=== PATIENT | male | born 1955 | race Caucasian/White ===

== ENCOUNTER 2020-01-30 06:11 | Emergency (ER) | payer OTHER, SELFPAY ==
[2020-01-30 06:18] VITALS: BP 146/84; PULSE 110; RESP 16; TEMP 36.4; O2SAT 95; BMI 31.5
[2020-01-30 06:38] VITALS: BP 139/87; PULSE 108; RESP 13; O2SAT 95
--- NOTE | 2020-01-30 07:13 | ECG_ITS ---
[facility] Test Date: 2020-01-30 Pat Name: Greg Ingram Department: Room: Gender: Male Project Manager/Team Coach: : 1955 Requested By: Shree Cota Order Number: [id number] Stephan MD: Teo Waller M.D. Measurements Intervals [place] Rate: 102 P: 58 VT: 120 QRS: 32 QRSD: 92 T: 80 QT: 360 QTc: 469 Interpretive Statements SINUS TACHYCARDIA NONSPECIFIC T-WAVE ABNORMALITY ABNORMAL RHYTHM ECG No previous ECG available for comparison Electronically Signed On 01-30-2020 10:11:50 MEDICATION NURSE by Teo Waller M.D. [id number]
--- NOTE | 2020-01-30 07:13 | W.ED.GENADLT ---
HPI - General Adult General: Chief complaint: General Medical Stated complaint: Numbness in Right Side of Face Time Seen by Provider: 01/30/20 06:16 History of Present Illness: HPI narrative: Patient says had a 2-day history of right facial drooping. Occurred suddenly. Said he is not had any neuro deficits besides on his face. Denies any pain. Is a diabetic who had been off his medications for a few months and just recently got back [place] 2 weeks ago. Denies any other health problems. MD complaint: Right facial drooping Onset (ago): day(s) (2) Location: face Radiation: non-radiation Severity: mild Associated symptoms: Reports no associated symptoms; Deny chest pain, dyspnea, headache(s), nausea, rash or vomiting Treatments prior to arrival: none Review of Systems Const: Denies: fever(s), chills or body aches Eyes: Denies: change in vision or blurry vision ENMT: Denies: throat pain or nasal congestion Card: Denies: chest pain or dyspnea on exertion Resp: Denies: dyspnea, productive cough or non-productive cough GI: Denies: abdominal pain, nausea or vomiting : Denies: difficulty urinating Musc: Denies: extremity pain Skin/Breast: Denies: rash Neuro: Reports: Slurred speech present and other (Right side facial drooping x2 days); Denies: headache(s) Psych: Denies: anxiety or depression Jamaal/Lymph: Denies: easy bruising Physical Exam Const: COMMON NORMALS: no acute distress, average body habitus and patient oriented x3 HENMT: COMMON NORMALS: normocephalic HEAD & SCALP: normal to inspection and normocephalic FACE & SINUS: normal facial exam Eye: COMMON NORMALS: conjunctivae normal GENERAL EYE: appearance normal, both eyes and all related structures CONJUNCTIVA: Yes conjunctivae normal Neck/C-Spine: COMMON NORMALS: no JVD Chest: COMMONS NORMALS: normal inspection of the chest Resp: COMMON NORMALS: normal respiratory effort and clear to auscultation bilaterally AUSCULTATION: clear to auscultation bilaterally Cardio: COMMON NORMALS: no JVD and regular rhythm RATE: tachycardic RHYTHM: regular rhythm GI: COMMON NORMALS: Normal to inspection, nondistended, normoactive bowel sounds present Extremity: COMMON NORMALS: normal to inspection and full ROM Neuro: COMMON NORMALS: patient oriented x3, moves all extremities, no focal motor deficits, no sensory deficits noted, deep tendon reflexes 2+ bilaterally and gait normal CRANIAL NERVES: Yes CN normal except as noted, Yes CN (abducens) and Yes CN VII (facial) Laterality: right CN VII findings: facial droop and weak closing of eye(s) Course Vital Signs: Vital signs: Vital Signs Temperature 97.5 F L 01/30/20 06:18 Pulse Rate 108 H 01/30/20 06:38 Respiratory Rate 13 01/30/20 06:38 Blood Pressure 139/87 01/30/20 06:38 Pulse Oximetry 95 01/30/20 06:38 MDM - General Adult MDM Narrative: Medical decision making narrative: Dr. Perales asked me evaluate and take over care of this patient. Discharge Plan Discharge Patient Disposition: Home Clinical Impression: Petty's palsy Condition: Stable Prescriptions: New prednisone 20 mg tablet 60 mg PO DAILY 7 Days Qty: 21 RF: 0 Artificial Tears (cmc) 1 % drops 1 drp ophthalmic (eye) 5XD Qty: 15 RF: 0 Artificial Tears (sully/min) 83-15 % ointment 1 applic ophthalmic (eye) ONCE Qty: 3.5 RF: 0 Discharge Orders: Discharge Order (Routine); Ordered 01/30/20 Ordered By: Shree Cota Referrals: Chan Huerta, DO [Primary Care Provider] - Discharge Diet: Usual diet Discharge Activity: Resume usual activity Patient Instructions: Petty Palsy (ED) Activity Restrictions/Additional Instructions: Follow-up with medical provider as directed. Take medications as prescribed. Return to the ER or your medical provider if condition worsens. Please read and understand discharge instructions. If any questions ask please. [facility] 2 [facility]. If worsening of symptoms or strokelike symptoms appear please return to the ER or follow[facility] with the [facility]. Tape eye shut at nighttime on the right side. Monitor sugar closely daily. Coding Level of Care Code ED Mold Inspector for Kyler Fwd Exam Comprehensive
[2020-01-30 07:43] VITALS: BP 140/89; PULSE 101; RESP 18; O2SAT 92
== END 2020-01-30 07:43 | disposition home or self-care (01) ==
PROVIDERS: Emergency Provider Nurse Practitioner Family; PCP Emergency Medicine Emergency Medical Services
DX: G51.0 Bell's palsy (principal); E11.9 Type 2 diabetes mellitus without complications
CPT/HCPCS: 12345; 93005; 99281; 99282

== ENCOUNTER 2021-03-24 14:27 | Outpatient (RCR) | payer OTHER, SELFPAY | END 2021-04-20 23:59 | disposition home or self-care (01) | LOC: SPT 14:27 | PROVIDERS: PCP Emergency Medicine Emergency Medical Services; Referring Provider Orthopaedic Surgery; Visit Provider Orthopaedic Surgery | DX: M75.01 Adhesive capsulitis of right shoulder (principal) | CPT/HCPCS: 97110; 97140; 97161 ==

== ENCOUNTER 2021-04-21 06:00 | Outpatient (RCR) | payer OTHER, SELFPAY | END 2021-05-18 23:59 | disposition home or self-care (01) | LOC: SPT 06:00 | PROVIDERS: PCP Emergency Medicine Emergency Medical Services; Referring Provider Orthopaedic Surgery; Visit Provider Orthopaedic Surgery | DX: M75.01 Adhesive capsulitis of right shoulder (principal) | CPT/HCPCS: 97110 ==

== ENCOUNTER 2021-05-19 06:00 | Outpatient (RCR) | payer OTHER, SELFPAY | END 2021-06-18 23:59 | disposition home or self-care (01) | LOC: SPT 06:00 | PROVIDERS: PCP Emergency Medicine Emergency Medical Services; Referring Provider Orthopaedic Surgery; Visit Provider Orthopaedic Surgery | DX: M75.01 Adhesive capsulitis of right shoulder (principal) | CPT/HCPCS: 97110 ==

== ENCOUNTER 2021-06-19 06:00 | Outpatient (RCR) | payer OTHER, SELFPAY | END 2021-07-18 23:59 | disposition home or self-care (01) | LOC: SPT 06:00 | PROVIDERS: PCP Emergency Medicine Emergency Medical Services; Referring Provider Orthopaedic Surgery; Visit Provider Orthopaedic Surgery | DX: M75.01 Adhesive capsulitis of right shoulder (principal) | CPT/HCPCS: 97110 ==

== ENCOUNTER 2021-07-19 | Outpatient (RCR) | payer OTHER, SELFPAY | END 2021-07-29 23:59 | disposition home or self-care (01) | LOC: SPT | PROVIDERS: PCP Emergency Medicine Emergency Medical Services; Referring Provider Orthopaedic Surgery; Visit Provider Orthopaedic Surgery | DX: M75.01 Adhesive capsulitis of right shoulder (principal) | CPT/HCPCS: 97110 ==

== ENCOUNTER → 2022-12-27 10:30 | Outpatient (BNVA) | payer OTHER, SELFPAY | PROVIDERS: PCP Emergency Medicine Emergency Medical Services; Visit Provider Podiatrist Foot & Ankle Surgery | DX: B35.1 Tinea unguium (principal); I73.9 Peripheral vascular disease, unspecified; G62.9 Polyneuropathy, unspecified; M21.6X1 Other acquired deformities of right foot; M21.6X2 Other acquired deformities of left foot; E11.42 Type 2 diabetes mellitus with diabetic polyneuropathy; Z79.84 Long term (current) use of oral hypoglycemic drugs | CPT/HCPCS: 11721; 99203 ==

== ENCOUNTER 2023-06-10 13:29 | Outpatient (CLI) | payer OTHER, SELFPAY ==
--- NOTE | 2023-06-10 13:40 | MR_ITS ---
WS: [id number] MRI HEAD WITH CONTRAST TECHNIQUE: Sagittal T1, T2 axial, T2 axial FLAIR, axial susceptibility weighted imaging, axial diffus ion weighted images, and coronal T2 images were obtained. Pre and post-T1 axial and post T1 coronal i mages. ADC and FSPGR images. CLINICAL INFORMATION: UPPER EXTREMITY TREMORS COMPARISON: None. FINDINGS: No evidence of restricted diffusion to suggest acute ischemia. Ventricular system and basal cisterns are patent. Mild small vessel changes. Mild parenchymal volume loss. Normal posterior fossa. Normal v ascular flow voids at the skull base. No extra-axial fluid collections. No evidence of mass or mass e ffect. The paranasal sinuses are well aerated. Mastoid air cells are well aerated. Tiny punctate focus of hemosiderin in the RIGHT basal ganglia and RIGHT cerebellum. Normal optic chiasm and pituitary infundibulum. Temporal lobes and hippocampal formations are normal in appearance. No abnormal gadolinium enhancement. Normal dural venous sinuses. IMPRESSION: 1. No evidence of restricted diffusion to suggest acute ischemia. 2. Mild small vessel changes with mild parenchymal volume loss. 3. Tiny foci of hemosiderin in the RIGHT basal ganglia and RIGHT cerebellum. 4. No abnormal gadolinium enhancement. 5. No other suspicious findings.
[2023-06-10] MEDS: gadobenate dimeglumine 20 mL vial IV (14:17)
== END 2023-06-10 13:30 | disposition home or self-care (01) ==
LOC: RAD 13:30
PROVIDERS: PCP Emergency Medicine Emergency Medical Services; Visit Provider Emergency Medicine Emergency Medical Services
DX: R25.1 Tremor, unspecified (principal)
CPT/HCPCS: 70553; A9577

== ENCOUNTER → 2023-08-17 10:15 | Outpatient (BNVA) | payer OTHER, SELFPAY | PROVIDERS: PCP Emergency Medicine Emergency Medical Services; Visit Provider Specialist | DX: R29.90 Unspecified symptoms and signs involving the nervous system (principal); G25.0 Essential tremor | CPT/HCPCS: 99204 ==

== ENCOUNTER → 2023-12-20 09:45 | Outpatient (BNVA) | payer OTHER, SELFPAY | PROVIDERS: PCP Emergency Medicine Emergency Medical Services; Visit Provider Specialist | DX: R29.90 Unspecified symptoms and signs involving the nervous system (principal); G25.0 Essential tremor | CPT/HCPCS: 99213 ==

== ENCOUNTER 2024-10-06 10:22 | Emergency (ER) | payer OTHER, MEDICARE, MEDICAID, SELFPAY ==
--- OUTSIDE RECORDS SUMMARY | 2024-10-02 03:19 | XMS_ITS ---
Author Name [facility] Organization [facility] [place] Address [address] [place] [address] Care Team Providers Care Fusing Machine Feeder Name Role Phone NATHANAEL ZENG Primary Care Provider Unavailabl e Insurance Providers: All historical and current Section Date Range: From patient's date of to the date document was created. This section includes the names of all active insurance providers for the patient. Insurance Provider Type of Coverage Plan Name Start of Policy Coverage End of Policy Coverage Group Number Member ID Insurance Provider's Telephone Number Policy Molina's Name Patient's Relationship to Policy Molina MEDICARE (WNR) MEDICARE (M) PART A Mar 21, 2020 PART A [id number] [phone] Ana Laura VAZQUEZ PATIENT MEDICARE (WNR) MEDICARE (M) PART B Mar 21, 2020 PART B [id number] Ana Laura VAZQUEZ PATIENT Selected Encounter This section includes the information on record at [place] for the Encounter. Date/Time Encounter Type Encounter Description Reason Pro vider Source Oct 02, 2024 08:19 AM Outpatient Encounter ADMIN PAT ACTIVTIES (MASNONCT) IHE Encounter Template Text not used by [place] Plan of Treatment: Future Appointments (+ 6 months) and Future Tests (+/- 45 days) The Plan of Treatment section includes future care activities for the patient from all [facility] treatmentfacilities. This section includes future appointments and future orders which are active, pending or scheduled. Future Appointments This section includes appointments that were scheduled to occur 6 months from the date of the Encounter, up to a maximum of 20 appointments. The data comes from all [facility]. Appointment Date/Time Appointment Type Appointme nt Facility Name Oct 04, 2024 09:45 AM AMBULATORY - [place]IC[place] [facility] Oct 11, 2024 01:30 PM AMBULATORY - MEDICINE [facility] Nov 09, 2024 01:30 PM AMBULATORY - MEDICINE [facility] Active, Pending, and Scheduled Orders This section includes a listing of several types of active, pending, and scheduled orders, including clinic medications orders, diagnostic test orders, procedure orders and consult orders; where the start date of the order is 45 days before the date of the Encounter or 45 days after the date of theEncounter. The data comes from all [facility]. Test Date/Time Test Type Test Details Facility Name Oct 02, 2024 03:26 PM Consult Order PROSTHETIC S REQUEST - OUTPT [id number] [facility] [employer] Field Technician's Choice [facility] Oct 02, 2024 03:26 PM Consult Order PB-CHIROPR ACTIC [place] OUTPT [id number] [employer] Field Technician's [facility] Lab Results: +/- 30 days of the encounter This section includes the Chemistry and Hematology Lab Results on record with [place] for the patient. Radiology Reports and Pathology Reports are provided separately, in subsequent sections. Lab Results This section contains the Chemistry/Hematology Results that were resulted 30 days before or 30 daysafter the date of the Encounter. Date/Time Source Result Type Result - Unit Interpretation Reference Range Specimen Type Comment Oct 02, 2024 03:16 PM [facility] PROST. SPECIFIC AG.(PB-STL) SERUM Specimen Ty pe: SERUM No comment entered. Ordering Provider: STEPHANY HUNTER Report Released Date/Time: Oct 02, 2024 03:06 PM Reporting Lab: [place] [facility] [address] [place] [address] Performing Lab: [place] [facility] [address] [place] [address] PROST. SPECIFIC AG.(PB-STL) 6.64 ng/mL H 0 -4 Oct 02, 2024 03:16 PM [facility] TSH (MA-PB) SERUM Specimen Typ e: SERUM No comment entered. Ordering Provider: STEPHANY HUNTER Report Released Date/Time: Oct 02, 2024 03:06 PM Reporting Lab: [place] [facility] [address] [place] [address] Performing Lab: [place] [facility] [address] [place] [address] TSH 1.475 u[IU]/mL 0.47-5 Oct 02, 2024 03:16 PM [facility] CBC BLOOD Specimen Type: BLOOD No comment entered. Ordering Provider: STEPHANY HUNTER Report Released Date/Time: Oct 02, 2024 03:06 PM Reporting Lab: [place] [facility] [address] [place] [facility] Performing Lab: [place] [facility] [address] [place] [address] WBC 5.1 10*3/uL 3.6-11.2 RBC 6.04 10*6/uL H 4.10-5.70 HGB 17.1 g/dL H 13.1-16.8 HCT 51.2 H 38.2-48.4 MCV 84.8 fL 80.0-100.0 MCH 28.3 pg 27.0-34.0 MCHC 33.4 g/dL 33.0-36.0 PLT 151 10*3/uL 150-400 MPV 11.1 fL 7.5-11.2 RDW 14.9 11.8-15.1 LYMPHOCYTES, AUTO % 35.1 MONOCYTES, AUTO % 10.0 NEUTROPHILS, AUTO % 51.7 EOSINOPHILS, AUTO % 1.8 BASOPHILS, AUTO % 0.8 LYMPHOCYTES, ABSOLUTE 1.79 10*3/uL 0.77- 4.50 MONOCYTES, ABSOLUTE 0.51 10*3/uL 0.19-0. 8 NEUTROPHILS, ABSOLUTE 2.64 10*3/uL 2.10- 8.00 EOSINOPHILS, ABSOLUTE 0.09 10*3/uL 0.00- 0.60 BASOPHILS, ABSOLUTE 0.04 10*3/uL 0.00-0. 20 IMMATURE GRANS, AUTO % 0.6 IMMATURE GRANS, AUTO ABS 0.03 10*3/uL 0. 00-0.05 Oct 02, 2024 03:16 PM [facility] B12 SERUM Specimen Type: SERUM No comment entered. Ordering Provider: STEPHANY HUNTER Report Released Date/Time: Oct 02, 2024 03:06 PM Reporting Lab: [place] [facility] [address] [place] [address] Performing Lab: [place] [facility] [address] [place] [address] B12 790 pg/mL 213-816 Oct 02, 2024 03:16 PM [facility] FOLATE (PB) SERUM Specimen Typ e: SERUM No comment entered. Ordering Provider: STEPHANY HUNTER Report Released Date/Time: Oct 02, 2024 03:06 PM Reporting Lab: [place] [facility] [address] [place] [address] Performing Lab: [place] [facility] [address] [place] [address] FOLATE (PB) 8.3 ng/mL 7-20 Oct 02, 2024 03:16 PM [facility] HGA1C BLOOD Specimen Type: BLOOD No comment entered. Ordering Provider: STEPHANY HUNTER Report Released Date/Time: Oct 02, 2024 03:06 PM Reporting Lab: [place] [facility] [address] [place] [address] Performing Lab: [place] [facility] [address] [place] [address] HGA1C 11.5 H 4.0-6.0 Oct 02, 2024 03:16 PM [facility] URINE ALBUMIN PROFILE-ih (PB) URINE Specimen Type: URINE No comment entered. Ordering Provider: STEPHANY HUNTER Report Released Date/Time: Oct 02, 2024 03:06 PM Reporting Lab: [place] [facility] [address] [place] [address] Performing Lab: [place] [facility] [address] [place] [address] URINE ALBUMIN (PB-STL) 24.47 mg/L uACR (PB-MA) 28.93 mg/g 0-30 CREATININE URINE/OTHERS 84.58 mg/dL Oct 02, 2024 03:16 PM [facility] VITAMIN D, 25-HYDROXY SERUM Specimen Type: SE RUM No comment entered. Ordering Provider: STEPHANY HUNTER Report Released Date/Time: Oct 02, 2024 03:06 PM Reporting Lab: [place] [facility] [address] [place] [address] Performing Lab: [place] [facility] [address] [place] [address] VITAMIN D, 25-HYDROXY 31.6 ng/mL 30-96 Oct 02, 2024 03:16 PM [facility] CHOLESTEROL PANEL (PB) PLASMA Specimen Type: P LASMA Comment: LDL calculation invalid when Triglyceride exceeds 250 mg/dl Ordering Provider: STEPHANY HUNTER Report Released Date/Time: Oct 02, 2024 03:06 PM Reporting Lab: [place] [facility] [address] [place] [address] Performing Lab: [place] [facility] [address] [place] [address] CHOLESTEROL 186 mg/dL 0-200 TRIGLYCERIDE 503 mg/dL H 0-150 CALCULATED LDL comment mg/dL HDL(New) 33.1 mg/dL L >40 HDL % OF TOTAL CHOLESTEROL (PB) 17.8 >25 DIRECT LDL(MA) 95.8 mg/dL 0-99.9 Oct 02, 2024 03:16 PM [facility] COMPREHENSIVE METABOLIC PANEL PLASMA Specimen Type: PLASMA Comment: LDL calculation invalid when Triglyceride exceeds 250 mg/dl Ordering Provider: STEPHANY HUNTER Report Released Date/Time: Oct 02, 2024 03:06 PM Reporting Lab: [place] [facility] [address] [place] [address] Performing Lab: [place] [facility] [address] [place] [address] CREATININE 0.75 mg/dL 0.7-1.3 UREA NITROGEN 19 mg/dL 9-25 GLUCOSE 156 mg/dL H 72-99 SODIUM 140 meq/L 136-145 POTASSIUM 4.3 meq/L 3.5-5 CHLORIDE 106 meq/L 98-107 CARBON DIOXIDE 24 meq/L 22-31 CALCIUM 8.7 mg/dL 8.4-10.4 PROTEIN 7.1 g/dL 6-8.6 ALBUMIN 4.5 g/dL 3.4-5 TOTAL BILIRUBIN 0.8 mg/dL 0.2-1.2 ALKALINE PHOSPHATASE 49 U/L 40-150 AST/SGOT 17 U/L 5-34 ALT/SGPT 22 U/L 8-40 EGFR (CKD-EPI 2020) 98 Radiology Reports: +/- 30 days of the encounter Radiology Reports For cases when an order for radiology services may have been completed prior to the date of the Encounter, the report list includes the Radiology Reports that were completed up to 30 days before dateof the Encounter. For cases when an order for radiology services may have been completed after the date of the Encounter, the report list also includes the Radiology Reports that were completed up to30 days after date of the Encounter. The data comes from all [place] treatment facilities. Date/Time Radiology Report Provider Source Oct 02, 2024 02:43 PM SHOULDER,RIGHT,2 O R MORE VIEWS: TALIA VAZQUEZ [id number] -1955 M Exm Date: OCT 02, 2024@14:43 Req Phys: STEPHANY HUNTER Pat Loc: PB-[place] [facility] (Req'g L Img Loc: PB-XRAY [place] Service: [place] [address] (Case [id number] COMPLETE) SHOULDER,RIGHT,2 OR MORE VIEWS (RAD Detailed) CPT:62274 Proc Modifiers : RIGHT Reason for Study: right shoulder pain Clinical History: Report Status: Verified Date Reported: OCT 02, 2024 Date Verified: OCT 02, 2024 Grove Superintendent E-Sig: Report: Right shoulder 2 views HISTORY: Right shoulder pain worsening DATE: 10/02/2024 FINDINGS: There are degenerative changes acromioclavicular and glenohumeral joints. Narrowing subacromion space. Calcification region of the supraspinatus tendon. Impression: 1. Mhkp-jw-gmijnzey arthritis 2. Calcification region of the supraspinous tendon most likely representing a calcific tendinitis Primary Interpreting Staff: CECILE BANKS, RADIOLOGIST (Grove Superintendent, no e-sig) /CECILE Mujica [facility] Oct 02, 2024 02:33 PM SPINE CERVICAL MIN 4 OR 5 VIEWS: TALIA VAZQUEZ [id number] -1955 M Exm Date: OCT 02, 2024@14:33 Req Phys: STEPHANY HUNTER Pat Loc: PB-[facility] PACT [facility] (Req'g L Img Loc: [facility] Service: Unknown [facility] [place] [address] (Case [id number] COMPLETE) SPINE CERVICAL MIN 4 OR 5 VIEWS (RAD Detailed) CPT:47378 Reason for Study: neck and left shoulder pain Clinical History: Report Status: Verified Date Reported: OCT 02, 2024 Date Verified: OCT 02, 2024 Grove Superintendent E-Sig: Report: Cervical spine 6 views HISTORY: Neck and left shoulder pain worsening DATE: 10/02/2024 FINDINGS: No evidence of a fracture or dislocation. There are degenerative changes. Disc spaces appear fairly well-maintained. Mild straightening normal lordotic curve. Calcification in the ligamentum nuchae. Impression: 1. Mild degenerative arthritis 2. Mild straightening normal lordotic curve suspicious for muscle and/or ligamentous injury Primary Interpreting Staff: CECILE BANKS RADIOLOGIST (Grove Superintendent, no e-sig) /CECILE Mujica [facility] [place] [facility] Oct 02, 2024 02:33 PM SPINE LUMBOSACRAL 2 OR 3 VIEWS: TALIA VAZQUEZ JOSTIN [id number] -1955 M Exm Date: OCT 02, 2024@14:33 Req Phys: STEPHANY HUNTER Loc: -[place] (Req'g L Img Loc: [facility] Service: Unknown [facility] [place] [address] (Case 193 COMPLETE) SPINE LUMBOSACRAL 2 OR 3 VIEWS (RAD Detailed) CPT:91018 Reason for Study: lower back pain Clinical History: Report Status: Verified Date Reported: OCT 02, 2024 Date Verified: OCT 02, 2024 Grove Superintendent E-Sig: Report: Lumbar spine 3 views. HISTORY: Low back pain worsening DATE: 10/02/2024 FINDINGS: There is no fracture or dislocation. No bony destruction. There are degenerative changes. Scoliosis. Small left renal calcification. Plaque in the abdominal aorta and iliac arteries. Impression: 1. Mild degenerative arthritis 2. Mild scoliosis 3. Small left renal calcification Primary Interpreting Staff: CECILE BANKS, RADIOLOGIST (Grove Superintendent, no e-sig) /CECILE Mujica [facility] Oct 02, 2024 02:33 PM SPINE THORACIC 2 V IEWS: TALIA VAZQUEZ [id number] -1955 M Exm Date: OCT 02, 2024@14:33 Req Phys: STEPHANY HUNTER Pat Loc: PB-[facility]CT [facility] (Req'g L Img Loc: PB-XRAY [place] Service: [place] [address] (Case [id number] COMPLETE) SPINE THORACIC 2 VIEWS (RAD Detailed) CPT:49828 Reason for Study: thoracic back pain with left shoulder pain Clinical History: Report Status: Verified Date Reported: OCT 02, 2024 Date Verified: OCT 02, 2024 Grove Superintendent E-Sig: Report: Thoracic spine 2 views HISTORY: Thoracic back pain with left shoulder pain worsening DATE: 10/02/2024 FINDINGS: There are degenerative changes. Mild narrowing a few the disc spaces. There is no fracture or dislocation. No definite bony destruction. Scoliosis. Impression: 1. Dydf-rd-evwkhdiv degenerative arthritis 2. Mild narrowing a few the disc spaces 3. Mild scoliosis Primary Interpreting Staff: CECILE BANKS, RADIOLOGIST (Grove Superintendent, no e-sig) /CECILE Mujica [facility] Encounter Notes: All associated encounter notes This section contains the clinical notes associated to the Encounter. Date/Time Encounter Note(s) Provider Source Oct 02, 2024 08:19 AM ADMINISTRATIVE NOT E: LOCAL TITLE: CCC: SCHEDULING ADMINISTRATION STANDARD TITLE: ADMINISTRATIVE NOTE DATE OF NOTE: OCT 02, 2024@08:19:40 ENTRY DATE: OCT 02, 2024@08:19:40 AUTHOR: CAMILLA GARCIA EXP COSIGNER: URGENCY: STATUS: COMPLETED CCC: SCHEDULING ADMINISTRATION Has ADDENDA Caller Verification Emergency Contact: JAMAICA KATYA Caller/Recipient Relation to Patient: Self Caller Name: TALIA VAZQUEZ Administrative Administrative Note Reason: Other Administrative Note Comments: Coyote called stating he's been having back pain and would like to make an appt to be seen for it. During warm transfer to triage nurse call was disconnected. Tried calling Coyote back and phone was busy. IMPORTANT: This note was created by [facility] Clinical Contact Center staff. Please do not alert the staff member by adding them as a signer for future communications. Alerts are not monitored by this user. /anne/ Talia STOLL [facility] Signed: 10/02/2024 08:19 Receipt Acknowledged By: 10/02/2024 11:50 /anne/ DARIEL Reddy [facility] 10/02/2024 ADDENDUM STATUS: COMPLETED Attempted to contact . Received a busy signal. /anne/ DARIEL Reddy [facility] Signed: 10/02/2024 11:50 10/02/2024 ADDENDUM STATUS: COMPLETED Coyote in clinic today for a Walkin visit /DARIEL Moscoso [facility] Signed: 10/02/2024 14:37 CAMILLA GARCIA [facility]
--- OUTSIDE RECORDS SUMMARY | 2024-10-02 09:00 | XMS_ITS | Encounter Summary ---
Author Name [facility] Organization [facility] [place] Address [address] [place] [id number] Care Team Providers Care Electrical Manager Name Role Phone NATHANAEL ZENG Primary Care [...] PART A Mar 21, 2020 PART A [id number] Ana Laura VAZQUEZ PATIENT MEDICARE (WNR) MEDICARE (M) PART B Mar 21, 2020 PART B [id number] Ana Laura VAZQUEZ PATIENT Selected Encounter This section includes the information on record at DC for the Encounter. Date/Time Encounter Type Encounter Description Reason Provider Source Oct 02, 2024 02:00 PM OFF/OP EST JULY X REQ PHY/QHP PRIMARY CARE/MEDICINE ICD-10-CM M54.50 Low back pain, unspecified DON CUEVAS IHCristiana Encounter Template Text not used by DC Assessments - Encounter Diagnoses This section includes the primary and secondary diagnoses documented for the Encounter. Date/Time Primary/Secondary Diagnosis Diagnosis Name Provider Source Oct 02, 2024 03:28 PM PRIMARY Low back pain, unspecified DON CUEVAS [facility] Plan of Treatment: Future Appointments (+ 6 months) and Future Tests (+/- 45 days) The Plan of Treatment section includes future care activities for the patient from [facility] This section includes future appointments and future orders which are active, pending or scheduled. Future Appointments This section includes appointments that were scheduled to occur 6 months from the date of the Encounter, up to a maximum of 20 appointments. The data comes from all [facility] facilities. Appointment Date/Time Appointment Type Appointme nt Facility Name Oct 04, 2024 09:45 AM AMBULATORY - [facility]IC[facility] [place] [facility] Oct 11, 2024 01:30 PM AMBULATORY - MEDICINE [facility] Nov 09, 2024 01:30 PM AMBULATORY MEDICINE [facility] Active, Pending, and Scheduled Orders This section includes a listing of several types of active, pending, and scheduled orders, including clinic medications orders, diagnostic test orders, procedure orders and consult orders; where the start date of the order is 45 days before the date of the Encounter or 45 days after the date of theEncounter. The data comes from all [facility]. Test Date/Time Test Type Test Details Facility Name Oct 02, 2024 03:26 PM Consult Order PROSTHETIC S REQUEST - OUTPT [id number] [employer] [facility] Oct 02, 2024 03:26 PM Consult Order PB-CHIROPR ACTIC [place] OUTPT [id number] Cons [employer] [facility] Lab Results: +/- 30 days of the encounter This section includes the Chemistry and Hematology Lab Results on record with DC for the patient. Radiology Reports and Pathology Reports are provided separately, in subsequent sections. Lab Results This section contains the Chemistry/Hematology Results that were resulted 30 days before or 30 daysafter the date of the Encounter. Date/Time Source Result Type Result - Unit Interpretation Reference Range Specimen Type Comment Oct 02, 2024 03:16 PM [facility] PROST. SPECIFIC AG.(PB-STL) SERUM Specimen Ty pe: SERUM No comment entered. Ordering Provider: STEPHANY HUNTER Report Released Date/Time: Oct 02, 2024 03:06 PM Reporting Lab: [place] [facility] [address] [place] [address] Performing Lab: [place] [facility] [address] [place] [facility] [address] PROST. SPECIFIC AG.(PB-STL) 6.64 ng/mL H 0 -4 Oct 02, 2024 03:16 PM [facility] CBC BLOOD Specimen Type: BLOOD No comment entered. Ordering Provider: STEPHANY HUNTER Report Released Date/Time: Oct 02, 2024 03:06 PM Reporting [facility] [address] [facility] [place] [id number] Performing Lab: [facility] [facility] [address] [facility] [place] [phone] WBC 5.1 10*3/uL 3.6-11.2 RBC 6.04 10*6/uL [...] 0. 00-0.05 Oct 02, 2024 03:16 PM [facility] TSH (MA-PB) SERUM Specimen Typ e: SERUM No comment entered. Ordering Provider: STEPHANY HUNTER Report Released Date/Time: Oct 02, 2024 03:06 PM Reporting Lab: [facility] [facility] [address] [place] [address] Performing Lab: [place] [facility] [address] [place] [address] TSH 1.475 u[IU]/mL 0.47-5 Oct 02, 2024 03:16 PM [place] [facility] B12 SERUM Specimen Type: SERUM No comment entered. Ordering Provider: STEPHANY HUNTER Report Released Date/Time: Oct 02, 2024 03:06 PM Reporting Lab: [place] [facility] [address] [place] [address] Performing Lab: [place] [facility] [address] [place] [address] B12 790 pg/mL 213-816 Oct 02, 2024 03:16 PM [facility] [place] [place] [facility] FOLATE (PB) SERUM Specimen Typ e: SERUM No comment entered. Ordering Provider: STEPHANY HUNTER Report Released Date/Time: Oct 02, 2024 03:06 PM Reporting Lab: [place] [facility] [address] [place] [address] Performing Lab: [place] [facility] [address] [place] [address] FOLATE (PB) 8.3 ng/mL 7-20 Oct 02, 2024 03:16 PM [facility] HGA1C BLOOD Specimen Type: BLOOD No comment entered. Ordering Provider: STEPHANY HUNTER Report Released Date/Time: Oct 02, 2024 03:06 PM Reporting Lab: [place] [facility] [address] [place] [address] Performing Lab: [place] [facility] [address] [place] [address] HGA1C 11.5 H 4.0-6.0 Oct 02, 2024 03:16 PM [place] [facility] VITAMIN D, 25-HYDROXY SERUM Specimen Type: SE RUM No comment entered. Ordering Provider: STEPHANY HUNTER Report Released Date/Time: Oct 02, 2024 03:06 PM Reporting Lab: [place] [facility] [address] [place] [address] Performing Lab: [place] [facility] [address] [place] [address] VITAMIN D, 25-HYDROXY 31.6 ng/mL 30-96 Oct 02, 2024 03:16 PM [facility] URINE ALBUMIN PROFILE-ih (PB) URINE Specimen Type: URINE No comment entered. Ordering Provider: STEPHANY HUNTER Report Released Date/Time: Oct 02, 2024 03:06 PM Reporting Lab: [place] [facility] [address] [place] [address] Performing Lab: [place] [facility] [address] [place] [address] URINE ALBUMIN (PB-STL) 24.47 mg/L uACR (PB-MA) 28.93 mg/g 0-30 CREATININE URINE/OTHERS 84.58 mg/dL Oct 02, 2024 03:16 PM [facility] COMPREHENSIVE METABOLIC PANEL PLASMA Specimen Type: PLASMA Comment: LDL calculation invalid when Triglyceride exceeds 250 mg/dl Ordering Provider: STEPHANY HUNTER Report Released Date/Time: Oct 02, 2024 03:06 PM Reporting Lab: [place] [facility] [address] [place] [address] Performing Lab: [place] [facility] [address] [place] [address] CREATININE 0.75 mg/dL 0.7-1.3 UREA NITROGEN 19 [...] 22 U/L 8-40 EGFR (CKD-EPI 2020) 98 Oct 02, 2024 03:16 PM [facility] CHOLESTEROL PANEL (PB) PLASMA Specimen Type: P NARCISO Comment: LDL calculation invalid when Triglyceride exceeds 250 mg/dl Ordering Provider: STEPHANY HUNTER Report Released Date/Time: Oct 02, 2024 03:06 PM Reporting Lab: [place] [facility] [address] [place] [address] Performing Lab: [place] [facility] [address] [place] [address] CHOLESTEROL 186 mg/dL 0-200 TRIGLYCERIDE 503 mg/dL H 0-150 CALCULATED LDL comment mg/dL HDL(New) 33.1 mg/dL L >40 HDL % OF TOTAL CHOLESTEROL (PB) 17.8 >25 DIRECT LDL(MA) 95.8 mg/dL 0-99.9 Vital Signs: All taken on the encounter date This section contains inpatient and outpatient Vital Signs collected on the date of the Encounter. Date/Time Temperature Pulse Blood Pressure Respiratory Rate SP02 Pain Height Weight Body Mass Index Source Oct 02, 2024 02:46 PM 148/90 mm[Hg] [facility] Oct 02, 2024 02:18 PM 98.5 F 98 /min 161/87 mm[Hg] 18 /min 95 % 10 204.5 lb 29 [facility] Social History: Smoking Status (Most current) and Tobacco Use (All prior to encounter date) This section includes the most current, and the historical, smoking and tobacco- related health factors from the [place] facility where the Encounter took place. Current Smoking Status This section includes the most current smoking, or tobacco-related health factor, from the [place] facility where the Encounter took place. Date/Time Current Smoking Status Comment Facil ity May 21, 2024 03:30 PM VA-TOBACCO USE EVERY DAY CIGARET ALISE [facility] Tobacco Use History This section includes a history of the smoking, or tobacco-related health factors, that were collected on or before the date of the Encounter. The data comes from the [place] facility where the Encounter took place. Date/Time Smoking Status/Tobacco Use Comment F acility May 21, 2024 03:30 PM VA-TOBACCO SCREEN FOLLOW-UP [facility] May 21, 2024 03:30 PM VA-TOBACCO USE ADVICE [facility] May 21, 2024 03:30 PM VA-TOBACCO USE BOOKS BINDER NO [facility] May 21, 2024 03:30 PM VA-TOBACCO USE EVERY DAY CIGARET ALISE [facility] May 21, 2024 03:30 PM VA-TOBACCO USE MED NO [place] [place] [facility] May 06, 2023 11:30 AM VA-TOBACCO USE 30 YEARS OR MORE [facility] May 06, 2023 11:30 AM VA-TOBACCO USE ADVICE [facility] May 06, 2023 11:30 AM VA-TOBACCO USE BOOKS BINDER NO [facility] May 06, 2023 11:30 AM VA-TOBACCO USE MED NO [place] [place] [facility] May 06, 2023 11:30 AM VA-TOBACCO USE WI 30 MIN OF WAKE UP [facility] May 06, 2023 11:30 AM VA-TOBACCO USER EVERY DAY [facility] Jan 13, 2022 10:00 AM VA-TOBACCO USE 30 YEARS OR MORE [facility] Jan 13, 2022 10:00 AM VA-TOBACCO USE ADVICE [facility] Jan 13, 2022 10:00 AM VA-TOBACCO USE BOOKS BINDER NO [facility] Jan 13, 2022 10:00 AM VA-TOBACCO USE MED NO [facility] Jan 13, 2022 10:00 AM VA-TOBACCO USE WI 30 MIN OF WAKE UP [facility] Jan 13, 2022 10:00 AM VA-TOBACCO USER EVERY DAY [facility] July 25, 2017 11:54 AM CURRENT TOBACCO USER [facility] July 25, 2017 11:54 AM CURRENT TOBACCO US ER (NOT READY TO QUIT) [facility] July 25, 2017 11:54 AM TOBACCO CESSATION REFERRAL DECLI ALEXX [facility] July 25, 2017 11:54 AM TOBACCO MEDS OFFERED BUT DECLINE D [facility] July 25, 2017 11:54 AM TOBACCO USER OFFERED MEDS [facility] Sep 07, 2016 12:12 PM CURRENT TOBACCO USER [facility] Sep 07, 2016 12:12 PM CURRENT TOBACCO US ER (NOT READY TO QUIT) [facility] Sep 07, 2016 12:12 PM TOBACCO CESSATION REFERRAL DECLI ALEXX [facility] Sep 07, 2016 12:12 PM TOBACCO CESSATION REFERRAL OFFER ED [facility] Sep 07, 2016 12:12 PM TOBACCO MEDS OFFERED BUT DECLINE D [facility] Sep 07, 2016 12:12 PM TOBACCO USER OFFERED MEDS [facility] Sep 08, 2015 08:04 AM CURRENT TOBACCO USER [facility] Sep 08, 2015 08:04 AM TOBACCO MEDS OFFERED BUT DECLINE D [facility] Sep 08, 2015 08:04 AM TOBACCO OFFERED PT MEDS (PROVIDE R) [facility] Sep 08, 2015 08:04 AM TOBACCO OFFERED STOP SMOKING CLI MARIA INES [facility] Radiology Reports: +/- 30 days of the [...] the Encounter. The data comes from all [place] treatment facilities. Date/Time Radiology Report Provider Source Oct 02, 2024 02:43 PM SHOULDER,RIGHT,2 O R MORE VIEWS: TALIA VAZQUEZ [id number] -1955 M Exm Date: OCT 02, 2024@14:43 Req Phys: STEPHANY HUNTER Pat Loc: [facility]-[place] PACT PANIAGUA KETAN (Req'g L Img Loc: PB-[place] [place] Service: [place] [address] (Case [id number] COMPLETE) SHOULDER,RIGHT,2 OR MORE VIEWS (RAD Detailed) CPT:08503 Proc Modifiers : RIGHT Reason for Study: right shoulder pain Clinical History: Report Status: Verified Date Reported: OCT 02, 2024 Date Verified: OCT 02, 2024 Sales Representative Facility Services E-Sig: Report: Right shoulder 2 views HISTORY: Right shoulder pain worsening DATE: 10/02/2024 FINDINGS: There are degenerative changes acromioclavicular and glenohumeral joints. Narrowing subacromion space. Calcification region of the supraspinatus tendon. Impression: 1. Ubsr-fv-icrkmqra arthritis 2. Calcification region of the supraspinous tendon most likely representing a calcific tendinitis Primary Interpreting Staff: CECILE BANKS, RADIOLOGIST (Sales Representative Facility Services, no e-sig) /CECILE Mujica [facility] Oct 02, 2024 02:33 PM SPINE CERVICAL MIN 4 OR 5 VIEWS: TALIA VAZQUEZ [id number] -1955 M Exm Date: OCT 02, 2024@14:33 Req Phys: STEPHANY HUNTER Pat Loc: [facility]-[place] PACT PANI[facility]UA [place] (Req'g L Img Loc: [facility] [place] Service: [place] [address] (Case [id number] COMPLETE) SPINE CERVICAL MIN 4 OR 5 VIEWS (RAD Detailed) CPT:36645 Reason for Study: neck and left shoulder pain Clinical History: Report Status: Verified Date Reported: OCT 02, 2024 Date Verified: OCT 02, 2024 Sales Representative Facility Services E-Sig: Report: Cervical spine 6 views HISTORY: Neck and left shoulder pain worsening DATE: 10/02/2024 FINDINGS: No evidence of a fracture or dislocation. There are degenerative changes. Disc spaces appear fairly well-maintained. Mild straightening normal lordotic curve. Calcification in the ligamentum nuchae. Impression: 1. Mild degenerative arthritis 2. Mild straightening normal lordotic curve suspicious for muscle and/or ligamentous injury Primary Interpreting Staff: CECILE BANKS, RADIOLOGIST (Sales Representative Facility Services, no e-sig) /[facility] CECILE BANKS [facility] Oct 02, 2024 02:33 PM SPINE LUMBOSACRAL 2 OR 3 VIEWS: TALIA VAZQUEZ [id number] -1955 M Exm Date: OCT 02, 2024@14:33 Req Phys: STEPHANY HUNTER Pat Loc: [facility]-[place] PACT PANIAGUA KETAN (Req'g L Img Loc: [facility] [place] Service: [place] [address] (Case [id number] COMPLETE) SPINE LUMBOSACRAL 2 OR 3 VIEWS (RAD Detailed) CPT:52355 Reason for Study: lower back pain Clinical History: Report Status: Verified Date Reported: OCT 02, 2024 Date Verified: OCT 02, 2024 Sales Representative Facility Services E-Sig: Report: Lumbar spine 3 views. HISTORY: Low back pain worsening DATE: 10/02/2024 FINDINGS: There is no fracture or dislocation. No bony destruction. There are degenerative changes. Scoliosis. Small left renal calcification. Plaque in the abdominal aorta and iliac arteries. Impression: 1. Mild degenerative arthritis 2. Mild scoliosis 3. Small left renal calcification Primary Interpreting Staff: CECILE BANKS, RADIOLOGIST (Sales Representative Facility Services, no e-sig) /CECILE Mujica [facility] Oct 02, 2024 02:33 PM SPINE THORACIC 2 V IEWS: TALIA VAZQUEZ [id number] -1955 M Exm Date: OCT 02, 2024@14:33 Req Phys: STEPHANY HUNTER Pat Loc: [facility]-[place] PACT PANIAGUA KETAN (Req'g L Img Loc: [facility] [place] Service: [place] [address] (Case [id number] COMPLETE) SPINE THORACIC 2 VIEWS (RAD Detailed) CPT:43146 Reason for Study: thoracic back pain with left shoulder pain Clinical History: Report Status: Verified Date Reported: OCT 02, 2024 Date Verified: OCT 02, 2024 Sales Representative Facility Services E-Sig: Report: Thoracic spine 2 views HISTORY: Thoracic back pain with left shoulder pain worsening DATE: 10/02/2024 FINDINGS: There are degenerative changes. Mild narrowing a few the disc spaces. There is no fracture or dislocation. No definite bony destruction. Scoliosis. Impression: 1. Tqdr-ob-oanzoomg degenerative arthritis 2. Mild narrowing a few the disc spaces 3. Mild scoliosis Primary Interpreting Staff: CECILE BANKS, RADIOLOGIST (Sales Representative Facility Services, no e-sig) /CECILE Mujica [facility] Encounter Notes: All associated encounter notes This section contains the clinical notes associated to the Encounter. Date/Time Encounter Note(s) Provider Source Oct 02, 2024 02:37 PM NURSING PROGRESS N OTE: LOCAL TITLE: NURSING NOTE PB STANDARD TITLE: NURSING PROGRESS NOTE DATE OF NOTE: OCT 02, 2024@14:37 ENTRY DATE: OCT 02, 2024@14:37:43 AUTHOR: DON CUEVAS COSIGNER: URGENCY: STATUS: COMPLETED This is a 69 year old MALE with known Allergies as noted: Patient has answered NKA On the following Active Medications: Active Outpatient Medications (including Supplies): Active Outpatient Medications Status 1) ALBUTEROL 90MCG (CFC-F) 200D ORAL INHL INHALE 2 PUFFS BY ACTIVE ORAL INHALATION FOUR TIMES A DAY SHAKE WELL. RINSE MOUTHPIECE FREQUENTLY TO PREVENT CLOGGING. Indication: FOR COPD 2) ALCOHOL PREP PAD USE/APPLY PAD TO AFFECTED AREA(S) ONCE A ACTIVE DAY NEEDED Indication: FOR WOUND CARE 3) ASPIRIN 81MG EC TAB TAKE ONE TABLET BY MOUTH ONCE A DAY FOR ACTIVE HEART OR CIRCULATION. TAKE WITH FOOD. 4) ATORVASTATIN CALCIUM 80MG TAB TAKE ONE-HALF TABLET BY MOUTH ACTIVE EVERY EVENING TO LOWER CHOLESTEROL 5) CHOLECALCIF 50MCG (D3-2,000UNIT) TAB TAKE ONE TABLET BY ACTIVE MOUTH ONCE A DAY Indication: FOR VITAMIN D DEFICIENCY 6) EMPAGLIFLOZIN 25MG TAB TAKE ONE TABLET BY MOUTH ONCE A DAY ACTIVE Indication: FOR DIABETES 7) FLUTICAS 100/SALMETEROL 50 INHL DISK 60 INHALE 1 INHALATION ACTIVE BY ORAL INHALATION TWICE A DAY (OPEN DISKUS; CLICK ONLY ONCE; MAY INHALE TWICE TO COMPLETE DOSE; CLOSE WHEN FINISHED) RINSE MOUTH AND SPIT AFTER EACH USE. Indication: FOR COPD 8) GLIPIZIDE 10MG TAB TAKE TWO TABLETS BY MOUTH TWO TIMES A DAY ACTIVE BEFORE MEALS FOR DIABETES. TAKE 30 MINUTES BEFORE EATING. 9) LANCET,SOFTCLIX USE LANCET FOR BLOOD TEST TWO TIMES PER WEEK ACTIVE (S) TO MONITOR BLOOD SUGAR. USE DIRECTED. 10) METFORMIN HCL 500MG 24HR SA TAB TAKE TWO TABLETS BY MOUTH ACTIVE TWICE A DAY WITH MEALS FOR BLOOD SUGAR CONTROL. TAKE WITH FOOD. AVOID ALCOHOL. DISCONTINUE BEFORE GETTING XRAY DYE. 11) PROPRANOLOL HCL 20MG TAB TAKE ONE TABLET BY MOUTH TWICE A ACTIVE DAY 12) TAMSULOSIN HCL 0.4MG CAP TAKE ONE CAPSULE BY MOUTH EVERY ACTIVE EVENING APPROXIMATELY 30 MINUTES AFTER THE SAME MEAL EACH DAY Indication: FOR BENIGN PROSTATIC HYPERPLASIA Active Non-VA Medications Status 1) Non-VA APPLE CIDER VINEGAR CAP/TAB 1 CAP/TAB BY MOUTH ONCE A ACTIVE DAY Indication: supplement 2) Non-VA FISH OIL 1000MG (500MG DHA/EPA) CAP 2000MG BY MOUTH ACTIVE THREE TIMES A DAY WITH MEALS Indication: FOR HIGH TRIGLYCERIDES 3) Non-VA MULTIVITAMIN/MINERAL ANTIOXIDANT CAP/TAB 1 CAP/TAB BY ACTIVE MOUTH ONCE A DAY Indication: FOR NUTRITION/DIETARY SUPPLEMENTATION 15 Total Medications C/C: back pain S: Lilibeth presents to the clinic as a walk-in. Wayzata reports over the last 3 months he has had low back pain mostly on the right side and radiates over to left side of his low back. report she also has left shoulder pain that is intermittent and is like a sharp stabbing pain that runs along his left shoulder blade. Wayz[place] report he takes 1200mg of ibuprofen daily for the pain, 600mg in the morning and 600mg in the evening. denies any known trauma to either area. Wayzata rates his pain at a 10/10. reports he has not taken his mediations today. O/A: ambulated to exam room with slow limping gait and no assistance. Wayzata alert and oriented x4 with unlabored breathing. has limited range of motion in his lumbar spine. is not currently having the stabbing pain in his left shoulder. Vital Signs: see cover sheet mild HTN 148/90 Weight: 204.5 pounds P: reviewed with Provider. Escalated to PCP visit. Immediate need called and form given to . Ketorolac 30mg IM ordered by Provider. Medication verified by Pharmacy and Nurse, pulled from clinic stock, scanned into BCMA and administered without complications into left Ventrogluteal site. Please see Provider note for complete plan of care. RTC: Advised to return to clinic as needed or report to ER if symptoms worsen. Per [facility] Directive 1605.06, wristband documentation: Patient wristband was removed and destroyed by (staff name) Don Cuevas and placed in the designated [email or web address] eG[employer]tered[employer]It bin. /es/ DARIEL ReddyN TALIA LOPEZ [facility] Signed: 10/02/2024 15:27 Receipt Acknowledged By: 10/02/2024 16:27 /es/ LA Gutierrez, MSN, Talia Lopez [facility]
--- OUTSIDE RECORDS SUMMARY | 2024-10-02 09:45 | XMS_ITS | Encounter Summary ---
Author Name [facility] [place] [facility] [place] [facility] [place] [facility] [place] Address [address] [place] [address] Care Team Providers Care Mimeographer Name Role Phone NATHANAEL ZENG Primary Care [...] PART A Mar 21, 2020 PART A [id number] [phone] Ana Laura INGRAM PATIENT MEDICARE (WNR) MEDICARE (M) PART B Mar 21, 2020 PART B [id number] Ana Laura INGRAM PATIENT Selected Encounter This section includes the information on record at [place] for the Encounter. Date/Time Encounter Type Encounter Description Reason Provider Source Oct 02, 2024 02:45 PM OFFICE O/P EST MOD 30 MIN PRIMARY CARE/MEDICINE ICD-10-CM M54.50 Low back pain, unspecified SANDRA HUNTER Cristiana Encounter Template Text not used by [facility] Assessments - Encounter Diagnoses This section includes the primary and secondary diagnoses documented for the Encounter. Date/Time Primary/Secondary Diagnosis Diagnosis Name Provider Source Oct 02, 2024 04:25 PM PRIMARY Low back pain, unspecified [facility] Oct 02, 2024 04:25 PM SECONDARY Cervicalgia SANDRA HUNTER [facility] Oct 02, 2024 04:25 PM SECONDARY Pain in thoracic spine SANDRA HUNTER [facility] Plan of Treatment: Future Appointments (+ 6 months) and Future Tests (+/- 45 days) The Plan of Treatment section includes future care activities for the patient from all [place] treatmentfacilities. This section includes future appointments and future orders which are active, pending or scheduled. Future Appointments This section includes appointments that were scheduled to occur 6 months from the date of the Encounter, up to a maximum of 20 appointments. The data comes from all [facility]. Appointment Date/Time Appointment Type Appointme nt Facility Name Oct 04, 2024 09:45 AM AMBULATORY - MEDICINE [facility] Oct 11, 2024 01:30 PM AMBULATORY - MEDICINE [facility] Nov 09, 2024 01:30 PM AMBULATORY - MEDICINE [facility] Active, Pending, and Scheduled Orders This section includes a listing of several types of active, pending, and scheduled orders, including clinic medications orders, diagnostic test orders, procedure orders and consult orders; where the start date of the order is 45 days before the date of the Encounter or 45 days after the date of theEncounter. The data comes from all [facility]. Test Date/Time Test Type Test Details Facility Name Oct 02, 2024 03:26 PM Consult Order PROSTHETIC S REQUEST - OUTPT [id number] Cons Feeder Switchboard Operator's Choice [facility] Oct 02, 2024 03:26 PM Consult Order PB-CHIROPR ACTIC [place] OUTPT [id number] Cons Feeder Switchboard Operator's [facility] Lab Results: +/- 30 days of the encounter This section includes the Chemistry and Hematology Lab Results on record with [place] for the patient. Radiology Reports and Pathology Reports are provided separately, in subsequent sections. Lab Results This section contains the Chemistry/Hematology Results that were resulted 30 days before or 30 daysafter the date of the Encounter. Date/Time Source Result Type Result - Unit Interpretation Reference Range Specimen Type Comment Oct 02, 2024 03:16 PM [facility] PROST. SPECIFIC AG.(PB-STL) SERUM Specimen Ty pe: SERUM No comment entered. Ordering Provider: SANDRA HUNTER Report Released Date/Time: Oct 02, 2024 03:06 PM Reporting Lab: [place] [facility] [address] [place] [id number] Performing Lab: [place] [facility] [address] [place] [address] PROST. SPECIFIC AG.(PB-STL) 6.64 ng/mL H 0 -4 Oct 02, 2024 03:16 PM [facility] TSH (MA-PB) SERUM Specimen Typ e: SERUM No comment entered. Ordering Provider: SANDRA HUNTER Report Released Date/Time: Oct 02, 2024 03:06 PM Reporting Lab: [place] [facility] [address] [place] [address] Performing Lab: [place] [facility] [address] [place] [id number] TSH 1.475 u[IU]/mL 0.47-5 Oct 02, 2024 03:16 PM [facility] CB CBC BLOOD Specimen Type: BLOOD No comment entered. Ordering Provider: SANDRA HUNTER Report Released Date/Time: Oct 02, 2024 03:06 PM Reporting Lab: [place] [facility] [address] [place] [id number] Performing Lab: [place] [facility] [address] [place] [address] WBC 5.1 10*3/uL 3.6-11.2 RBC 6.04 10*6/uL [...] 0. 00-0.05 Oct 02, 2024 03:16 PM [facility] B12 SERUM Specimen Type: SERUM No comment entered. Ordering Provider: SANDRA HUNTER Report Released Date/Time: Oct 02, 2024 03:06 PM Reporting Lab: [place] [facility] [address] [place] [address] Performing Lab: [place] [facility] [address] [place] [address] B12 790 pg/mL 213-816 Oct 02, 2024 03:16 PM [facility] FOLATE (PB) SERUM Specimen Typ e: SERUM No comment entered. Ordering Provider: SANDRA HUNTRE Report Released Date/Time: Oct 02, 2024 03:06 PM Reporting Lab: [place] [facility] [address] [place] [address] Performing Lab: [place] [facility] [address] [place] [address] FOLATE (PB) 8.3 ng/mL 7-20 Oct 02, 2024 03:16 PM [facility] HGA1C BLOOD Specimen Type: BLOOD No comment entered. Ordering Provider: SANDRA HUNTER Report Released Date/Time: Oct 02, 2024 03:06 PM Reporting Lab: [place] [facility] [address] [place] [address] Performing Lab: [place] [facility] [address] [place] [address] HGA1C 11.5 H 4.0-6.0 Oct 02, 2024 03:16 PM [facility] URINE ALBUMIN PROFILE-ih (PB) URINE Specimen Type: URINE No comment entered. Ordering Provider: SANDRA HUNTER Report Released Date/Time: Oct 02, 2024 03:06 PM Reporting Lab: [place] [facility] [address] [place] [address] Performing Lab: [place] [facility] [address] [place] [address] URINE ALBUMIN (PB-STL) 24.47 mg/L uACR (PB-MA) 28.93 mg/g 0-30 CREATININE URINE/OTHERS 84.58 mg/dL Oct 02, 2024 03:16 PM [facility] VITAMIN D, 25-HYDROXY SERUM Specimen Type: SE RUM No comment entered. Ordering Provider: SANDRA HUNTER Report Released Date/Time: Oct 02, 2024 03:06 PM Reporting Lab: [place] [facility] [address] [place] [address] Performing Lab: [place] [facility] [address] [place] [address] VITAMIN D, 25-HYDROXY 31.6 ng/mL 30-96 Oct 02, 2024 03:16 PM [facility] CHOLESTEROL PANEL (PB) PLASMA Specimen Type: P LASMA Comment: LDL calculation invalid when Triglyceride exceeds 250 mg/dl Ordering Provider: SANDRA HUNTER Report Released Date/Time: Oct 02, 2024 03:06 PM Reporting Lab: [place] [facility] [address] [place] [address] Performing Lab: [place] [facility] [address] [place] [address] CHOLESTEROL 186 mg/dL 0-200 TRIGLYCERIDE 503 mg/dL H 0-150 CALCULATED LDL comment mg/dL HDL(New) 33.1 mg/dL L >40 HDL % OF TOTAL CHOLESTEROL (PB) 17.8 >25 DIRECT LDL(MA) 95.8 mg/dL 0-99.9 Oct 02, 2024 03:16 PM [facility] COMPREHENSIVE METABOLIC PANEL PLASMA Specimen Type: PLASMA Comment: LDL calculation invalid when Triglyceride exceeds 250 mg/dl Ordering Provider: SANDRA HUNTER Report Released Date/Time: Oct 02, 2024 03:06 PM Reporting Lab: [place] [facility] [address] [place] [address] Performing Lab: [place] [facility] [address] [place] [address] CREATININE 0.75 mg/dL 0.7-1.3 UREA NITROGEN 19 [...] 22 U/L 8-40 EGFR (CKD-EPI 2020) 98 Vital Signs: All taken on the encounter date This section contains inpatient and outpatient Vital Signs collected on the date of the Encounter. Date/Time Temperature Pulse Blood Pressure Respiratory Rate SP02 Pain Height Weight Body Mass Index Source Oct 02, 2024 02:46 PM 148/90 mm[Hg] [facility] Oct 02, 2024 02:18 PM 98.5 F 98 /min 161/87 mm[Hg] 18 /min 95 % 10 204.5 lb 29 [facility] Social History: Smoking Status (Most current) and Tobacco Use (All prior to encounter date) This section includes the most current, and the historical, smoking and tobacco- related health factors from the [place] facility where the Encounter took place. Current Smoking Status This section includes the most current smoking, or tobacco-related health factor, from the [place] facility where the Encounter took place. Date/Time Current Smoking Status Comment Facil ity May 21, 2024 03:30 PM VA-TOBACCO NEVER USED OTHER TYPE [facility] Tobacco Use History This section includes a history of the smoking, or tobacco-related health factors, that were collected on or before the date of the Encounter. The data comes from the [place] facility where the Encounter took place. Date/Time Smoking Status/Tobacco Use Comment F acility May 21, 2024 03:30 PM VA-TOBACCO SCREEN FOLLOW-UP [facility] May 21, 2024 03:30 PM VA-TOBACCO USE ADVICE [facility] May 21, 2024 03:30 PM VA-TOBACCO USE CLOTH WASHER OPERATOR NO [facility] May 21, 2024 03:30 PM VA-TOBACCO USE EVERY DAY CIGARET ALISE [facility] May 21, 2024 03:30 PM VA-TOBACCO USE MED NO [facility] May 06, 2023 11:30 AM VA-TOBACCO USE 30 YEARS OR MORE [place] [facility] May 06, 2023 11:30 AM VA-TOBACCO USE ADVICE [facility] May 06, 2023 11:30 AM VA-TOBACCO USE CLOTH WASHER OPERATOR NO [facility] May 06, 2023 11:30 AM VA-TOBACCO USE MED NO [facility] May 06, 2023 11:30 AM VA-TOBACCO USE WI 30 MIN OF WAKE UP [facility] [place] [facility] May 06, 2023 11:30 AM VA-TOBACCO USER EVERY DAY [facility] Jan 13, 2022 10:00 AM VA-TOBACCO USE 30 YEARS OR MORE [facility] Jan 13, 2022 10:00 AM VA-TOBACCO USE ADVICE [facility] Jan 13, 2022 10:00 AM VA-TOBACCO USE CLOTH WASHER OPERATOR NO [facility] Jan 13, 2022 10:00 AM VA-TOBACCO USE MED NO [facility] Jan 13, 2022 10:00 AM VA-TOBACCO USE WI 30 MIN OF WAKE UP [facility] Jan 13, 2022 10:00 AM VA-TOBACCO USER EVERY DAY [facility] July 25, 2017 11:54 AM CURRENT TOBACCO USER [place] [facility] July 25, 2017 11:54 AM CURRENT TOBACCO US ER (NOT READY TO QUIT) [place] [facility] July 25, 2017 11:54 AM TOBACCO CESSATION REFERRAL DECLI ALEXX [place] [facility] July 25, 2017 11:54 AM TOBACCO MEDS OFFERED BUT DECLINE D [facility] July 25, 2017 11:54 AM TOBACCO USER OFFERED MEDS [facility] Sep 07, 2016 12:12 PM CURRENT TOBACCO USER [facility] Sep 07, 2016 12:12 PM CURRENT TOBACCO US ER (NOT READY TO QUIT) [place] [facility] Sep 07, 2016 12:12 PM TOBACCO CESSATION REFERRAL DECLI ALEXX [facility] Sep 07, 2016 12:12 PM TOBACCO CESSATION REFERRAL OFFER ED [facility] Sep 07, 2016 12:12 PM TOBACCO MEDS OFFERED BUT DECLINE D [facility] Sep 07, 2016 12:12 PM TOBACCO USER OFFERED MEDS [facility] Sep 08, 2015 08:04 AM CURRENT TOBACCO USER [facility] Sep 08, 2015 08:04 AM TOBACCO MEDS OFFERED BUT DECLINE D [facility] Sep 08, 2015 08:04 AM TOBACCO OFFERED PT MEDS (PROVIDE R) [facility] Sep 08, 2015 08:04 AM TOBACCO OFFERED STOP SMOKING CLI MARIA INES [facility] Radiology Reports: +/- 30 days of the [...] the Encounter. The data comes from all [place] treatment facilities. Date/Time Radiology Report Provider Source Oct 02, 2024 02:43 PM SHOULDER,RIGHT,2 O R MORE VIEWS: TALIA INGRAM JOSTIN [id number] -[id number] M Exm Date: OCT 02, 2024@14:43 Req Phys: SANDRA HUNTER Pat Loc: PB-[place]IL[place] PACT PANIAGUA KETAN (Req'g L Img Loc: PB-XRAY [place] Service: [place] [address] (Case [id number] COMPLETE) SHOULDER,RIGHT,2 OR MORE VIEWS (RAD Detailed) CPT:65267 Proc Modifiers : RIGHT Reason for Study: right shoulder pain Clinical History: Report Status: Verified Date Reported: OCT 02, 2024 Date Verified: OCT 02, 2024 Inverted Block Operator E-Sig: Report: Right shoulder 2 views HISTORY: Right shoulder pain worsening DATE: 10/02/2024 FINDINGS: There are degenerative changes acromioclavicular and glenohumeral joints. Narrowing subacromion space. Calcification region of the supraspinatus tendon. Impression: 1. Tzmv-wd-diodylnc arthritis 2. Calcification region of the supraspinous tendon most likely representing a calcific tendinitis Primary Interpreting Staff: CECILE B JOCELYN, RADIOLOGIST (Inverted Block Operator, no e-sig) /[facility] CECILE BANKS [facility] Oct 02, 2024 02:33 PM SPINE CERVICAL MIN 4 OR 5 VIEWS: GEORGETALIA JOSTIN [id number] -[id number] M Exm Date: OCT 02, 2024@14:33 Req Phys: SANDRA HUNTER Pat Loc: PB-CAMILLE PACT PANIAGUA KETAN (Req'g L Img Loc: PB-XRAY [place] Service: [place] [address] (Case [id number] COMPLETE) SPINE CERVICAL MIN 4 OR 5 VIEWS (RAD Detailed) CPT:54560 Reason for Study: neck and left shoulder pain Clinical History: Report Status: Verified Date Reported: OCT 02, 2024 Date Verified: OCT 02, 2024 Inverted Block Operator E-Sig: Report: Cervical spine 6 views HISTORY: [...] injury Primary Interpreting Staff: CECILE BANKS, RADIOLOGIST (Inverted Block Operator, no e-sig) /[facility] CECILE BANKS [facility] Oct 02, 2024 02:33 PM SPINE LUMBOSACRAL 2 OR 3 VIEWS: TALIA INGRAM [id number] -[id number] M Exm Date: OCT 02, 2024@14:33 Req Phys: SANDRA HUNTER Pat Loc: PB-CAMILLE PACT PANIAGUA KETAN (Req'g L Img Loc: PB-XRAY [place] Service: [place] [address] (Case [id number] COMPLETE) SPINE LUMBOSACRAL 2 OR 3 VIEWS (RAD Detailed) CPT:48867 Reason for Study: lower back pain Clinical History: Report Status: Verified Date Reported: OCT 02, 2024 Date Verified: OCT 02, 2024 Inverted Block Operator E-Sig: Report: Lumbar spine 3 views. HISTORY: Low back pain worsening DATE: 10/02/2024 FINDINGS: There is no fracture or dislocation. No bony destruction. There are degenerative changes. Scoliosis. Small left renal calcification. Plaque in the abdominal aorta and iliac arteries. Impression: 1. Mild degenerative arthritis 2. Mild scoliosis 3. Small left renal calcification Primary Interpreting Staff: CECILE BANKS RADIOLOGIST (Inverted Block Operator, no e-sig) /CECILE Mujica [place] [facility] Oct 02, 2024 02:33 PM SPINE THORACIC 2 V IEWS: TALIA INGRAM [id number] -1955 M Exm Date: OCT 02, 2024@14:33 Req Phys: SANDRA HUNTER Pat Loc: PB-CAMILLE PACT PANIAGUA KETAN (Req'g L Img Loc: PB-XRAY [place] Service: [place] [address] (Case [id number] COMPLETE) SPINE THORACIC 2 VIEWS (RAD Detailed) CPT:49197 Reason for Study: thoracic back pain with left shoulder pain Clinical History: Report Status: Verified Date Reported: OCT 02, 2024 Date Verified: OCT 02, 2024 Inverted Block Operator E-Sig: Report: Thoracic spine 2 views HISTORY: Thoracic back pain with left shoulder pain worsening DATE: 10/02/2024 FINDINGS: There are degenerative changes. Mild narrowing a few the disc spaces. There is no fracture or dislocation. No definite bony destruction. Scoliosis. Impression: 1. Jnok-my-awrbbljh degenerative arthritis 2. Mild narrowing a few the disc spaces 3. Mild scoliosis Primary Interpreting Staff: CECILE BANKS RADIOLOGIST (Inverted Block Operator, no e-sig) /CECILE Muj[place] [facility] Encounter Notes: All associated encounter notes This section contains the clinical notes associated to the Encounter. Date/Time Encounter Note(s) Provider Source Oct 03, 2024 11:11 AM PHYSICIAN LETTERS: LOCAL TITLE: TEST RESULT GENERAL LETTER STL STANDARD TITLE: PHYSICIAN LETTERS DATE OF NOTE: OCT 03, 2024@11:11 ENTRY DATE: OCT 03, 2024@11:11:51 AUTHOR: NATHANAEL ZENG III EXP COSIGNER: URGENCY: STATUS: COMPLETED [facility] [address] [place] [address] OCT 03, 2024 TALIA INGRAM [address] [place] [address] [place] [id number] Dear Talia Ingram, I would like to update you on your recent test results. OTHER TEST RESULTS RADIOLOGY (NON-INVASIVE TEST RESULTS): Nothing appears urgent or surgical at this time: Thoracic spine 2 views HISTORY: Thoracic back pain with left shoulder pain worsening DATE: 10/02/2024 FINDINGS: There are degenerative changes. Mild narrowing a few the disc spaces. There is no fracture or dislocation. No definite bony destruction. Scoliosis. Impression: 1. Zwke-tv-jygblwvm degenerative arthritis 2. Mild narrowing a few the disc spaces 3. Mild scoliosis FUTURE APPOINTMENTS: 10/04/2024 09:45 [facility] [id number] 10/11/2024 13:30 PB-CAMILLE PACT PANIAGUA PCP 11/09/2024 13:30 PB-[place] CHIRO 2 05/22/2025 10:30 PB-CAMILLE PACT PANIAGUA PCP Sincerely, MD TALIA OTERO III [facility] TALIA INGRAM HOMER E III [facility] Oct 03, 2024 09:30 AM LETTERS: LOCAL TITLE: NURSE COMMUNICATION LETTER [facility] PB STANDARD TITLE: LETTERS DATE OF NOTE: OCT 03, 2024@09:30 ENTRY DATE: OCT 03, 2024@09:31:12 AUTHOR: HENRY MUHAMMAD EXP COSIGNER: URGENCY: STATUS: [facility]TED [facility] [address] [place] [address] OCT 03, 2024 TALIA INGRAM [address] [place] [id number] Dear Talia Ingram, Good morning, We have attempted to contact you by phone from the [facility], to go over your recent x-ray result and provider recommendations. We have not had any success as we continually just get a busy signal. Please review the enclosed test result letter and if you have any questions, they can be discussed next week at you PCP appt on 10/11/24 @ [phone]. You can always contact via phone with any questions or concerns by calling [phone] option 0 and ask for your [place] team Nurse. As always, thank you for your service. Respectfully, Baldo Ochoa Team RN Thank you for your service! HENRY MUHAMMAD [facility] Oct 02, 2024 04:11 PM PHYSICIAN LETTERS: LOCAL TITLE: TEST RESULT GENERAL LETTER STL STANDARD TITLE: PHYSICIAN LETTERS DATE OF NOTE: OCT 02, 2024@16:11 ENTRY DATE: OCT 02, 2024@16:11:30 AUTHOR: NATHANAEL ZENG III EXP COSIGNER: URGENCY: STATUS: COMPLETED [facility] [address] [place] [address] OCT 02, 2024 TALIA INGRAM [address] [place] [address] Dear Talia Ingram, I would like to update you on your recent test results. OTHER TEST RESULTS RADIOLOGY (NON-INVASIVE TEST RESULTS): Cervical spine 6 views HISTORY: Neck and left shoulder pain worsening DATE: 10/02/2024 FINDINGS: No evidence of a fracture or dislocation. There are degenerative changes. Disc spaces appear fairly well-maintained. Mild straightening normal lordotic curve. Calcification in the ligamentum nuchae. Impression: 1. Mild degenerative arthritis 2. Mild straightening normal lordotic curve suspicious for muscle and/or ligamentous injury FUTURE APPOINTMENTS: 10/04/2024 09:45 [facility] [id number] 10/11/2024 13:30 PB-CAMILLE PACT PANIAGUA PCP 11/09/2024 13:30 PB-[place] CHIRO 2 05/22/2025 10:30 PB-CAMILLE PACT PANIAGUA PCP Sincerely, MD TALIA OTERO III [facility] TALIA INGRAM HOMER E III [facility] Oct 02, 2024 04:07 PM PHYSICIAN LETTERS: LOCAL TITLE: TEST RESULT GENERAL LETTER STL STANDARD TITLE: PHYSICIAN LETTERS DATE OF NOTE: OCT 02, 2024@16:07 ENTRY DATE: OCT 02, 2024@16:07:27 AUTHOR: NATHANAEL ZENG III EXP COSIGNER: URGENCY: STATUS: COMPLETED [facility] [address] [place] [address] OCT 02, 2024 TALIA INGRAM [address] [place] [address] Dear Talia Ingram, I would like to update you on your recent test results. OTHER TEST RESULTS RADIOLOGY (NON-INVASIVE TEST RESULTS): Right shoulder 2 views HISTORY: Right shoulder pain worsening DATE: 10/02/2024 FINDINGS: There are degenerative changes acromioclavicular and glenohumeral joints. Narrowing subacromion space. Calcification region of the supraspinatus tendon. Impression: 1. Disl-ml-xzkmdqeq arthritis 2. Calcification region of the supraspinous tendon most likely representing a calcific tendinitis PLAN Please continue your treatment as we discussed during your visit. If you have any questions please call your case consultant. I look forward to seeing you at your next clinic appointment. Thank you for choosing the [facility] for your healthcare. If today's visit did not calm it down within a week or so, you might want to go ahead and see orthopedics. Please call us back if you are interested in pursuing that route. FUTURE APPOINTMENTS: 10/04/2024 09:45 [facility] [id number] 10/11/2024 13:30 PB-CAMILLE PACT PANIAGUA PCP 11/09/2024 13:30 PB-[place] CHIRO 2 05/22/2025 10:30 PB-CAMILLE PACT PANIAGUA PCP Sincerely, MD TALIA OTERO III [facility] INGRAMTALIA HOMER E III [facility] Oct 02, 2024 03:17 PM PRIMARY CARE PROGR ESS NOTE: LOCAL TITLE: PRIMARY CARE CLINIC PROGRESS NOTE PB STANDARD TITLE: PRIMARY CARE PROGRESS NOTE DATE OF NOTE: OCT 02, 2024@15:17 ENTRY DATE: OCT 02, 2024@15:17:33 AUTHOR: SANDRA HUNTER EXP COSIGNER: URGENCY: STATUS: COMPLETED Date & Time:Sep@14:41 This is a 69 year old MALE Allergies: Patient has answered NKA CC: Right shoulder stabbing pain with pain in between shoulder blades and in lower back and sciatic nerve HPI: [place] presented to the clinic today as a walk-in unscheduled appointment with complaints of right stabbing shoulder pain with shoulder in between shoulder blades in the thoracic spine region as well as lower back states worse on the right side stating down into the sciatic nerve area. [place] also has some tenderness to the cervical spine area palpable muscle spasm spasms up and down the cervical the spine. Temperature: 98.5 F [36.9 C] (10/02/2024 14:18) Respiratory Rate: 18 (10/02/2024 14:18) Pulse Rate: 98 (10/02/2024 14:18) Blood Pressure: 161/87 (10/02/2024 14:18) HT: 70 in [177.8 cm] (09/08/2017 08:32) WT: 204.5 lb [92.76 kg] (10/02/2024 14:18) BMI: 29.4 95% (10/02/2024 14:18) REVIEW OF SYSTEMS: RESPIRATORY: No cough, SOA, wheezing, or sputum production. CARDIOVASCULAR: No chest pain, palpitations, tachycardia, PND, or orthopnea. GI: No abdominal pain, nausea, vomiting, diarrhea, constipation, melena, or hematochezia. : No dysuria, hematuria, urinary frequency, weak stream, or post-void dribbling. MUSCULOSKELETAL: Right shoulder pain cervical thoracic and lumbar spine pain. SKIN: No rash, lesions, or infection PSYCH: No depression and anxious at this time. Not suicidal. 1) History of polyp of colon 2) Benign prostatic hyperplasia 3) Sinus tachycardia 4) Diabetes mellitus 5) Hyperlipidemia 6) Elevated PSA 7) Tremor Active Outpatient Medications (including Supplies): Active Outpatient [...] Indication: FOR NUTRITION/DIETARY SUPPLEMENTATION 15 Total Medications OBJECTIVE: Physical Exam General: NAD noted, A&Ox3, pleasant, appears stated age HEENT: NCAT, TM's clear, nares and oropharynx clear Neck: Supple with normal active ROM, without any lymphadenopathy Heart: RRR, no murmur, clicks, or rub Resp: Lungs CTA bilaterally, respirations even and unlabored Abdomen: Soft, non-distended, non-tender Ext: No clubbing, cyanosis, edema or obvious deformity Neuro: Grossly intact Psych: Affect normal, answers questions appropriately throughout visit Assessment/Plan: Lower back pain -current plan x-ray lumbar spine today, prednisone called to [facility] pharmacy immediate need form given to . Will send diclofenac gel and lidocaine patches to in the mail. Chiropractor consult placed for lower back pain. Heat pack given to from [facility] stock Cervicalgia -current Plan x-ray of cervical spine today plan IM Toradol today prednisone called to [facility] [employer] immediate need form given will place chiro consult for neck pain lower back pain and thoracic back pain. [place] instructed to make appointment on the way out the door will mail diclofenac gel and lidocaine patches to . Thoracic spine pain -current Plan x-ray of thoracic spine today plan IM Toradol today prednisone called to [facility] pharmacy immediate need form given to will place chiropractor consult for neck pain lower back pain and thoracic back pain instructed to make appointment on the way out the door for chiropractor and an annual appointment will mail diclofenac gel and lidocaine patches to Reviewed x-ray reports with and discussed narrowing and degenerative changes as well or as arthritic changes at this time does not want any surgical interventions would like to try conservative interventions we will do the chiropractor and the medications and proceed as needed at this time we do not want to do an MRI. Follow-up: ___1__ months and/or as needed. Discussed with patient that in the event of community imaging / testing being ordered in the future, once the imaging / testing has been completed, please notify PACT of completion at outside facility if not called with results within 1 week by a [facility]; this is due to intermittent lapses in notification of imaging completion within [facility]. All questions answered; agrees to plan of care. Follow up as listed above, annually, and as needed. Keep all appointments. Medications Reconciled. See AVS given to . Time spent 30 minutes. Sandra SERRANO /anne/ LA Gutierrez, MSN, Talia Lopez [facility] Signed: 10/02/2024 16:25 SANDRA HUNTER [facility]
--- OUTSIDE RECORDS SUMMARY | 2024-10-04 08:45 | XMS_ITS | Encounter Summary ---
Author Name [facility] [place] [facility] [facility] [place] Address [address] [place] [id number] Care Team Providers Care Technical Support Specialist Name Role Phone NATHANAEL ZENG Primary Care [...] PART A Mar 21, 2020 PART A [id number] [phone] Ana Laura VAZQUEZ PATIENT MEDICARE (WNR) MEDICARE (M) PART B Mar 21, 2020 PART B [id number] Ana Laura VAZQUEZ PATIENT Selected Encounter This section includes the information on record at [place] for the Encounter. Date/Time Encounter Type Encounter Description Reason Pro vider Source Oct 04, 2024 01:45 PM Outpatient Encounter PRIMARY CARE/MEDICINE IHE Encounter Template Text not used by [place] Plan of Treatment: Future Appointments (+ 6 [...] 20 appointments. The data comes from all [place] treatment facilities. Appointment Date/Time Appointment Type Appointme nt Facility Name Oct 11, 2024 01:30 PM AMBULATORY - MEDICINE [facility] Nov 09, 2024 01:30 PM AMBULATORY - MEDICINE [facility] Active, Pending, and Scheduled Orders This section includes a listing of several types of active, pending, and scheduled orders, including clinic medications orders, diagnostic test orders, procedure orders and consult orders; where the start date of the order is 45 days before the date of the Encounter or 45 days after the date of theEncounter. The data comes from all [place] treatment [facility]. Test Date/Time Test Type Test Details Facility Name Oct 02, 2024 03:26 PM Consult Order PROSTHETIC S REQUEST - OUTPT [id number] Cons Lighter Captain's Choice [facility] Oct 02, 2024 03:26 PM Consult Order PB-CHIROPR ACTIC SHERIDAN OUTPT [id number] Cons Lighter [facility] Lab Results: +/- 30 days of the encounter This section includes the Chemistry and Hematology Lab Results on record with [place] for the patient. Radiology Reports and Pathology Reports are provided separately, in subsequent sections. Lab Results This section contains the Chemistry/Hematology Results that were resulted 30 days before or 30 daysafter the date of the Encounter. Date/Time Source Result Type Result - Unit Interpretation Reference Range Specimen Type Comment Oct 02, 2024 03:16 PM [facility] PROST. SPECIFIC AG.(PB-STL) SERUM Specimen Ty pe: SERUM No comment entered. Ordering Provider: STEPHANY HUNTER Report Released Date/Time: Oct 02, 2024 03:06 PM Reporting Lab: [place] [facility] [address] [place] [address] Performing Lab: [place] [facility] [address] [place] [address] PROST. SPECIFIC AG.(PB-STL) 6.64 ng/mL H 0 -4 Oct 02, 2024 03:16 PM [facility] TSH (MA-PB) SERUM Specimen Typ e: SERUM No comment entered. Ordering Provider: STEPHANY HUNTER Report Released Date/Time: Oct 02, 2024 03:06 PM Reporting Lab: [place] [facility] [address] [place] [address] Performing Lab: [place] [facility] [address] [place] [address] TSH 1.475 u[IU]/mL 0.47-5 Oct 02, 2024 03:16 PM [facility] CBC BLOOD Specimen Type: BLOOD No comment entered. Ordering Provider: STEPHANY HUNTER Report Released Date/Time: Oct 02, 2024 03:06 PM Reporting Lab: [place] [facility] [address] [place] [id number] Performing Lab: [place] [facility] [address] [employer] [facility] [place] [id number] WBC 5.1 10*3/uL 3.6-11.2 RBC 6.04 10*6/uL [...] 0. 00-0.05 Oct 02, 2024 03:16 PM [facility] B12 SERUM Specimen Type: SERUM No comment entered. Ordering Provider: STEPHANY HUNTER Report Released Date/Time: Oct 02, 2024 03:06 PM Reporting Lab: [place] [facility] [address] [place] [address] Performing Lab: [place] [facility] [address] [place] [address] B12 790 pg/mL 213-816 Oct 02, 2024 03:16 PM [facility] FOLATE (PB) SERUM Specimen Typ e: SERUM No comment entered. Ordering Provider: STEPHANY HUNTER Report Released Date/Time: Oct 02, 2024 03:06 PM Reporting Lab: [place] [facility] [address] [place] [address] Performing Lab: [place] [facility] [address] [place] [address] FOLATE (PB) 8.3 ng/mL 7-20 Oct 02, 2024 03:16 PM [facility] HGA1C BLOOD Specimen Type: BLOOD No comment entered. Ordering Provider: STEPHANY HUNTER Report Released Date/Time: Oct 02, 2024 03:06 PM Reporting Lab: [place] [facility] [address] [place] [address] Performing Lab: [place] [facility] [address] [place] [address] HGA1C 11.5 H 4.0-6.0 Oct 02, 2024 03:16 PM [facility] VITAMIN D, 25-HYDROXY SERUM Specimen Type: SE RUM No comment entered. Ordering Provider: STEPHANY HUNTER Report Released Date/Time: Oct 02, 2024 03:06 PM Reporting Lab: [place] [facility] [address] [place] [address] Performing Lab[place] [facility] [address] [place] [address] VITAMIN D, 25-HYDROXY 31.6 ng/mL 30-96 Oct 02, 2024 03:16 PM [facility] URINE ALBUMIN PROFILE-ih (PB) URINE Specimen Type: URINE No comment entered. Ordering Provider: STEPHANY HUNTER Report Released Date/Time: Oct 02, 2024 03:06 PM Reporting Lab: [place] [facility] [address] [place] [address] Performing Lab: [place] [facility] [address] [place] [address] URINE ALBUMIN (PB-STL) 24.47 mg/L uACR (PB-MA) 28.93 mg/g 0-30 CREATININE URINE/OTHERS 84.58 mg/dL Oct 02, 2024 03:16 PM [facility] CHOLESTEROL PANEL (PB) PLASMA Specimen Type: P LASMONICA Comment: LDL calculation invalid when Triglyceride exceeds 250 mg/dl Ordering Provider: STEPHANY HUNTER Report Released Date/Time: Oct 02, 2024 03:06 PM Reporting Lab: [place] [facility] [address] [place] [address] Performing Lab: [place] [facility] [address] [place] [address] CHOLESTEROL 186 mg/dL 0-200 TRIGLYCERIDE 503 mg/dL H 0-150 CALCULATED LDL comment mg/dL HDL(New) 33.1 mg/dL L >40 HDL % OF TOTAL CHOLESTEROL (PB) 17.8 >25 DIRECT LDL(MA) 95.8 mg/dL 0-99.9 Oct 02, 2024 03:16 PM [facility] COMPREHENSIVE METABOLIC PANEL PLASMA Specimen Type: PLASMA Comment: LDL calculation invalid when Triglyceride exceeds 250 mg/dl Ordering Provider: STEPHANY HUNTER Report Released Date/Time: Oct 02, 2024 03:06 PM Reporting Lab: [place] [facility] [address] [place] [address] Performing Lab: [place] [facility] [address] [place] [address] CREATININE 0.75 mg/dL 0.7-1.3 UREA NITROGEN 19 [...] 22 U/L 8-40 EGFR (CKD-EPI 2020) 98 Social History: Smoking Status (Most current) and Tobacco Use (All prior to encounter date) This section includes the most current, and the historical, smoking and tobacco- related health factors from the [place] facility where the Encounter took place. Current Smoking Status This section includes the most current smoking, or tobacco-related health factor, from the [place] facility where the Encounter took place. Date/Time Current Smoking Status Comment Facil ity May 21, 2024 03:30 PM VA-TOBACCO USE EVERY DAY CIGARET ALISE [facility] Tobacco Use History This section includes a history of the smoking, or tobacco-related health factors, that were collected on or before the date of the Encounter. The data comes from the [place] facility where the Encounter took place. 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 [facility] May 06, 2023 11:30 AM VA-TOBACCO USE MED NO [facility] May 06, 2023 11:30 AM VA-TOBACCO USE WI 30 MIN OF WAKE UP [facility] May 06, 2023 11:30 AM VA-TOBACCO USER EVERY DAY [facility] Jan 13, 2022 10:00 AM VA-TOBACCO USE 30 YEARS OR MORE [facility] Jan 13, 2022 10:00 AM VA-TOBACCO USE ADVICE [facility] Jan 13, 2022 10:00 AM VA-TOBACCO USE 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 [facility] Jan 13, 2022 10:00 AM VA-TOBACCO USE MED NO [facility] Jan 13, 2022 10:00 AM VA-TOBACCO USE WI 30 MIN OF WAKE UP [facility] Jan 13, 2022 10:00 AM VA-TOBACCO USER EVERY DAY [facility] July 25, 2017 11:54 AM CURRENT TOBACCO USER [facility] July 25, 2017 11:54 AM CURRENT TOBACCO US ER (NOT READY TO QUIT) [facility] July 25, 2017 11:54 AM TOBACCO CESSATION REFERRAL DECLI ALEXX [facility] July 25, 2017 11:54 AM TOBACCO MEDS OFFERED BUT DECLINE D [facility] July 25, 2017 11:54 AM TOBACCO USER OFFERED MEDS [facility] Sep 07, 2016 12:12 PM CURRENT TOBACCO USER [facility] Sep 07, 2016 12:12 PM CURRENT TOBACCO US ER (NOT READY TO QUIT) [facility] Sep 07, 2016 12:12 PM TOBACCO CESSATION REFERRAL DECLI A[facility]XX [facility] Sep 07, 2016 12:12 PM TOBACCO CESSATION REFERRAL OFFER ED [facility] Sep 07, 2016 12:12 PM TOBACCO MEDS OFFERED BUT DECLINE D [facility] Sep 07, 2016 12:12 PM TOBACCO USER OFFERED MEDS [facility] Sep 08, 2015 08:04 AM CURRENT TOBACCO USER [facility] Sep 08, 2015 08:04 AM TOBACCO MEDS OFFERED BUT DECLINE D [facility] Sep 08, 2015 08:04 AM TOBACCO OFFERED PT MEDS (PROVIDE R) [facility] Sep 08, 2015 08:04 AM TOBACCO OFFERED STOP SMOKING CLI MARIA INES [facility] Radiology Reports: +/- 30 days of the [...] the Encounter. The data comes from all [place] treatment facilities. Date/Time Radiology Report Provider Source Oct 02, 2024 02:43 PM SHOULDER,RIGHT,2 O R MORE VIEWS: TALIA VAZQUEZ [id number] -1955 M Exm Date: OCT 02, 2024@14:43 Req Phys: STEPHANY HUNTER Loc: [facility] (Req'g L Img Loc: PB-XRAY SHER[facility]AN Service: [place] [address] (Case [id number] COMPLETE) SHOULDER,RIGHT,2 OR MORE VIEWS (RAD Detailed) CPT:94313 Proc Modifiers : RIGHT Reason for Study: right shoulder pain Clinical History: Report Status: Verified Date Reported: OCT 02, 2024 Date Verified: OCT 02, 2024 Local Government Legislator E-Sig: Report: Right shoulder 2 views HISTORY: Right shoulder pain worsening DATE: 10/02/2024 FINDINGS: There are degenerative changes acromioclavicular and glenohumeral joints. Narrowing subacromion space. Calcification region of the supraspinatus tendon. Impression: 1. Aqng-vt-auwviaib arthritis 2. Calcification region of the supraspinous tendon most likely representing a calcific tendinitis Primary Interpreting Staff: CECILE BANKS, RADIOLOGIST (Local Government Legislator, no e-sig) /CECILE Mujica [facility] Oct 02, 2024 02:33 PM SPINE CERVICAL MIN 4 OR 5 VIEWS: TALIA VAZQUEZ [id number] -1955 M Exm Date: OCT 02, 2024@14:33 Req Phys: STEPHANY HUNTER Loc: [facility] (Req'g L Img Loc: [facility] Service: [place] [address] (Case [id number] COMPLETE) SPINE CERVICAL MIN 4 OR 5 VIEWS (RAD Detailed) CPT:26286 Reason for Study: neck and left shoulder pain Clinical History: Report Status: Verified Date Reported: OCT 02, 2024 Date Verified: OCT 02, 2024 Local Government Legislator E-Sig: Report: Cervical spine 6 views HISTORY: [...] injury Primary Interpreting Staff: CECILE BANKS, RADIOLOGIST (Local Government Legislator, no e-sig) /[facility] CECILE BANKS [facility] Oct 02, 2024 02:33 PM SPINE THORACIC 2 V IEWS: VAZQUEZTALIA PARR JOSTIN [id number] -1955 M Exm Date: OCT 02, 2024@14:33 Req Phys: STEPHANY HUNTER Pat Loc: [facility] (Req'g L Img Loc: [facility] Service: [place] [address] (Case [id number] COMPLETE) SPINE THORACIC 2 VIEWS (RAD Detailed) CPT:92011 Reason for Study: thoracic back pain with left shoulder pain Clinical History: Report Status: Verified Date Reported: OCT 02, 2024 Date Verified: OCT 02, 2024 Local Government Legislator E-Sig: Report: Thoracic spine 2 views HISTORY: Thoracic back pain with left shoulder pain worsening DATE: 10/02/2024 FINDINGS: There are degenerative changes. Mild narrowing a few the disc spaces. There is no fracture or dislocation. No definite bony destruction. Scoliosis. Impression: 1. Dajs-dq-ghdtvtxc degenerative arthritis 2. Mild narrowing a few the disc spaces 3. Mild scoliosis Primary Interpreting Staff: CECILE BANKS, RADIOLOGIST (Local Government Legislator, no e-sig) /[facility] CECILE BANKS [facility] Oct 02, 2024 02:33 PM SPINE LUMBOSACRAL 2 OR 3 VIEWS: TALIA VAZQUEZ [id number] -1955 M Exm Date: OCT 02, 2024@14:33 Req Phys: STEPHANY HUNTER Pat Loc: [facility] (Req'g L Img Loc: [facility] Service: [place] [address] (Case [id number] COMPLETE) SPINE LUMBOSACRAL 2 OR 3 VIEWS (RAD Detailed) CPT:87398 Reason for Study: lower back pain Clinical History: Report Status: Verified Date Reported: OCT 02, 2024 Date Verified: OCT 02, 2024 Local Government Legislator E-Sig: Report: Lumbar spine 3 views. HISTORY: Low back pain worsening DATE: 10/02/2024 FINDINGS: There is no fracture or dislocation. No bony destruction. There are degenerative changes. Scoliosis. Small left renal calcification. Plaque in the abdominal aorta and iliac arteries. Impression: 1. Mild degenerative arthritis 2. Mild scoliosis 3. Small left renal calcification Primary Interpreting Staff: CECILE BANKS, RADIOLOGIST (Local Government Legislator, no e-sig) /CECILE Mujica [facility]
--- OUTSIDE RECORDS SUMMARY | 2024-10-06 06:11 | XMS_ITS | Continuity of Care Document ---
Author Name [facility] Organization [facility] Care Team Providers Care Analytics Specialist Name Role Phone [facility] Unavailable Unavailable Problems Combined list of problems from Department of Defense and [facility] Affairs facilities. It does not include entries that were removed or entered in error. Problem Status Onset Date Problem Type Date of Resolution Comments Source Benign prostatic hyperplasia Active Condition [place] [facility] Diabetes mellitus Active Condition [place] [facility] Dyslipidemia (ICD-9-CM 272.4) Active Condition [facility] Elevated PSA Active Condition Jan 07, 2021 Entered By: BELINDA FLORES Comment: 5.5 2020. [place] [facility] History of polyp of colon Active Condition [place] [facility] Hyperlipidemia Active Condition [place] [facility] Obesity * (ICD-9-CM 278.00) Active Condition [facility] Personal History of Tobacco Use (ICD-9-CM V15.82) Active Condition May 08 11 Entered By: ALEX HUA Comment: quit 03/21/10. Smoked 1 ppd for 42 years [facility] Sinus tachycardia Active Condition [place] [facility] Tremor Active Condition [place] [facility] Hyperlipidemia * (ICD-9-CM 272.4) Inactive Condition 11/12/2010 [facility] Diagnosis: ICD-10-CM M54.50 Low back pain, unspecified Active Diagnosis [facility] Diagnosis: ICD-10-CM Z00.01 Encounter for general adult medical exam w abnormal findings Active Diagnosis [facility] Diagnosis: ICD-10-CM N39.0 Urinary tract infection, site not specified Active Diagnosis [place] [facility] Diagnosis: ICD-10-CM E78.5 Hyperlipidemia, unspecified Active Diagnosis [facility] Diagnosis: ICD-10-CM L03.90 Cellulitis, unspecified Active Diagnosis [facility] Diagnosis: ICD-10-CM E11.9 Type 2 diabetes mellitus without complications Active Diagnosis [facility] Medications Combined list of outpatient medications from Department of Defense and Veterans Affairs facilities.Medications provided include 1) outpatient medications from the last 15 months, and 2) patient-reported medications. Medication Details Route Status Patient Instructions Prescription Expires Prescription Number Last Dispense Date Ordering Provider Order Date Order Qty Source ALBUTEROL SO4 90MCG/ACTUA T (CFC-F) INHL,ORAL,8 .5GM INHALE 2 PUFFS BY ORAL INHALATI ON FOUR TIMES A DAY FOR COPD SHAKE WELL. RINSE MOUTHPIE CE FREQUENT LY TO PREVENT CLOGGING . RESPIR ATORY (INHAL ATION) ACTIVE 05/22/2025 [id number] DIPAK HUNTERTELeah G 2024 3 [facility] APPLE CIDER VINEGAR CAP/TAB TAKE 1 CAP/TAB BY MOUTH ONCE A DAY ORAL ACTIVE EKATERINA BARRERA 2023 [facility] ASPIRIN 81MG TAB,EC TAKE ONE TABLET BY MOUTH ONCE A DAY FOR HEART OR CIRCULAT ION. TAKE WITH FOOD. ORAL ACTIVE 05/23/2025 [id number] 5 DIPAK HUNTER ISTEL G 2024 120 [facility] ATORVASTATI N CA 80MG TAB TAKE ONE-HALF TABLET BY MOUTH EVERY EVENING TO LOWER CHOLESTE ROL ORAL ACTIVE 05/23/2025 [id number] 5 DIPAK HUNTER ISTEL G 2024 45 [facility] CHOLECALCIF JAD 50MCG (2,000UNIT) TAB TAKE ONE TABLET BY MOUTH ONCE A DAY FOR VITAMIN D DEFICIEN CY ORAL ACTIVE 05/23/2025 [id number] 5 DIPAK HUNTER ISTEL G 2024 100 [facility] CHOLECALCIF JAD 50MCG (2,000UNIT) TAB TAKE ONE TABLET BY MOUTH ONCE A DAY FOR VITAMIN D DEFICIEN CY ORAL DISCONT INUED 05/11/2024 [id number] BROOKE FLORES 2023 100 [facility] DICLOFENAC NA 1% GEL,TOP APPLY 4 GM TO AFFECTED AREA(S) FOUR TIMES A DAY NEEDED FOR PAIN NO MORE THAN 16 GM/DAY TO ANY LOWER EXTREMIT Y JOINT. NO MORE THAN 8 GM/DAY TO ANY UPPER EXTREMIT Y JOINT. MAX 32GM/DAY OVER ALL JOINTS.( MEASURE DOSE WITH RULER INSIDE BOX) TOPICA L ACTIVE 10/03/2025 [id number] 5 DIPAK HUNTER ISTEL G 2024 100 [facility] EMPAGLIFLOZ IN 25MG TAB TAKE ONE TABLET BY MOUTH ONCE A DAY FOR DIABETES ORAL ACTIVE 05/23/2025 [id number] 5 DIPAK HUNTER ISTEL G 2024 90 [facility] FISH OIL 1000MG (500MG DHA/EPA) CAP,ORAL TAKE 2 CAPSULES BY MOUTH THREE TIMES A DAY WITH MEALS ORAL ACTIVE EKATERINA BARRERA 2023 [facility] FISH OIL 1000MG (500MG DHA/EPA) CAP,ORAL TAKE 1 CAPSULE BY MOUTH THREE TIMES A DAY ORAL ACTIVE ARIANA HUA 2010 [facility] FLUTICASONE 100MCG/SALM ETEROL 50MCG INHL,ORAL,D ISKUS,60 INHALE 1 INHALATI ON BY ORAL INHALATI ON TWICE A DAY FOR COPD (OPEN DISKUS; CLICK ONLY ONCE; MAY INHALE TWICE TO COMPLETE DOSE; CLOSE WHEN FINISHED ) RINSE MOUTH AND SPIT AFTER EACH USE. RESPIR ATORY (INHAL ATION) ACTIVE 05/22/2025 [id number] 5 DIPAK HUNTER ISTEL G 2024 3 [facility] GLIPIZIDE 10MG TAB TAKE TWO TABLETS BY MOUTH TWO TIMES A DAY BEFORE MEALS FOR DIABETES . TAKE 30 MINUTES BEFORE EATING. ORAL ACTIVE 05/23/2025 [id number] 5 HUNTERDIPAK ISTEL G 2024 360 [facility] LIDOCAINE 5% PATCH APPLY 3 PATCHES TO SKIN SITE ONCE A DAY NEEDED FOR LOCAL ANESTHES IA APPLY PATCH AND PRESS FIRMLY FOR 10-15 SECONDS. KEEP ON FOR 12 HOURS THEN REMOVE PATCH FOR 12 HOURS. TRANSD ERMAL ACTIVE 10/03/2025 [id number] 5 HUNTER,DIPAK ISTEL G 2024 90 [facility] METFORMIN HCL 500MG 24HR TAB,SA TAKE TWO TABLETS BY MOUTH TWICE A DAY WITH MEALS FOR BLOOD SUGAR CONTROL. TAKE WITH FOOD. AVOID ALCOHOL. DISCONTI NUE BEFORE GETTING XRAY DYE. ORAL ACTIVE 05/23/2025 [id number] 5 DIPAK HUNTER 2024 360 [facility] MULTIVITAMI N/MINERALS ANTIOXIDANT CAP/TAB TAKE 1 CAP/TAB BY MOUTH ONCE A DAY ORAL ACTIVE EKATERINA BARRERA 2023 [facility] NITROFURANT OIN MONOHYDRATE /MACROCRYST ALLINE 100MG CAP,SA TAKE ONE CAPSULE BY MOUTH TWICE A DAY AFTER MEALS FOR UTI TAKE WITH FOOD UNTIL GONE. ORAL 03/08/2024 [id number] OPAL REICH 2023 14 [place] [facility] PHENAZOPYRI DINE HCL 100MG TAB TAKE TWO TABLETS BY MOUTH THREE TIMES A DAY FOR URINARY ANALGESI A TAKE WITH PLENTY OF WATER*MA Y DISCOLOR THE URINE ORAL 03/08/2024 [id number] OPAL REICH S 2023 12 [place] [facility] PROPRANOLOL HCL 20MG TAB TAKE ONE TABLET BY MOUTH TWICE A DAY ORAL ACTIVE 12/20/2024 [id number] 4 ANTONI RICHARDS 2023 180 [place] [facility] PROPRANOLOL HCL 20MG TAB TAKE ONE TABLET BY MOUTH TWICE A DAY ORAL DISCONT INUED 08/17/2024 [id number] ANTONI RICHARDS 2023 60 [place] [facility] SITAGLIPTIN (EQV-ZITUVI O) 100MG TAB TAKE ONE TABLET BY MOUTH ONCE A DAY FOR DIABETES ORAL 09/19/2024 [id number] BROOKE FLORES 2023 90 [facility] TAMSULOSIN HCL 0.4MG CAP TAKE ONE CAPSULE BY MOUTH EVERY EVENING FOR BENIGN PROSTATI C HYPERPLA BRIA APPROXIM ATELY 30 MINUTES AFTER THE SAME MEAL EACH DAY ORAL ACTIVE 05/23/2025 [id number] 5 DIPAK HUNTER 2024 90 [facility] Immunizations Combined list of available immunizations from the Department of Defense and Veterans Affairs facilities. Immunization Series Date Given Administered By Site Reaction Lot Number CVX Code Drug Build And Deployment Engineer Status Comments Source TDAP 2015 115 complet ed [facility] Results Combined list of recent chemistry, hematology and other laboratory results from Department of Defense and Veterans Affairs, ranging from 15 months to all on record, depending upon the facility. Order Name Results Value Reference Range Date Interpretation Specimen Comments Source PROST. SPECIFIC AG.(PB-STL ) PROSTATE SPECIFIC AG [MASS/VOLUM E] IN SERUM OR PLASMA 6.64 ng/mL 0 - 4 10/02 H Specimen Type: SERUM No comment entered. Ordering Provider: SILVERIO HUNTER Report Released Date/Time: Oct 02, 2024 03:06 PM Reporting Lab: [place] [facility] [address] [place] [address] Performing Lab: [place] [facility] [address] [place] [address] [facility] TSH (MA-PB) THYROTROPIN [UNITS/VOLU ME] IN SERUM OR PLASMA 1.475 u[IU]/ mL 0.47 - 5 10/02 Specimen Type: SERUM No comment entered. Ordering Provider: SILVERIO HUNTER Report Released Date/Time: Oct 02, 2024 03:06 PM Reporting Lab: [place] [facility] [address] [place] [address] Performing Lab: [place] [facility] [address] [place] [address] [facility] CBC LEUKOCYTES [#/VOLUME] IN BLOOD BY AUTOMATED COUNT 5.1 10*3/u L 3.6 - 11.2 10/02 Specimen Type: BLOOD No comment entered. Ordering Provider: SILVERIO HUNTER Report Released Date/Time: Oct 02, 2024 03:06 PM Reporting Lab: [place] [facility] [address] [place] [address] Performing Lab: [place] [facility] [address] [place] [address] [address] [facility] CBC ERYTHROCYTE S [#/VOLUME] IN BLOOD BY AUTOMATED COUNT 6.04 10*6/u L 4.10 - 5.70 10/02 H Specimen Type: BLOOD No comment entered. Ordering Provider: SILVERIO HUNTER Report Released Date/Time: Oct 02, 2024 03:06 PM Reporting Lab: [place] [facility] [address] [place] [facility] Performing Lab: [place] [facility] [address] [place] [address] [facility] CBC HEMOGLOBIN [MASS/VOLUM E] IN BLOOD 17.1 g/dL 13.1 - 16.8 10/02 H Specimen Type: BLOOD No comment entered. Ordering Provider: SILVERIO HUNTER Report Released Date/Time: Oct 02, 2024 03:06 PM Reporting Lab: [place] [facility] [address] [place] [address] Performing Lab: [place] [facility] [address] [place] [address] [facility] CBC HEMATOCRIT [VOLUME FRACTION] OF BLOOD 51.2 38.2 - 48.4 10/02 H Specimen Type: BLOOD No comment entered. Ordering Provider: SILVERIO HUNTER Report Released Date/Time: Oct 02, 2024 03:06 PM Reporting Lab: [place] [facility] [address] [place] [address] Performing Lab: [place] [facility] [address] [place] [address] [facility] CBC MCV [ENTITIC VOLUME] BY AUTOMATED COUNT 84.8 fL 80.0 - 100.0 10/02 Specimen Type: BLOOD No comment entered. Ordering Provider: SILVERIO HUNTER Report Released Date/Time: Oct 02, 2024 03:06 PM Reporting Lab: [place] [facility] [address] [place] [facility] Performing Lab: [place] [facility] [address] [place] [address] [facility] CBC MCH [ENTITIC MASS] BY AUTOMATED COUNT 28.3 pg 27.0 - 34.0 10/02 Specimen Type: BLOOD No comment entered. Ordering Provider: SILVERIO HUNTER Report Released Date/Time: Oct 02, 2024 03:06 PM Reporting Lab: [place] [facility] [address] [place] [address] Performing Lab: [place] [facility] [address] [place] [address] [facility] CBC MCHC [MASS/VOLUM E] BY AUTOMATED COUNT 33.4 g/dL 33.0 - 36.0 10/02 Specimen Type: BLOOD No comment entered. Ordering Provider: SILVERIO HUNTER Report Released Date/Time: Oct 02, 2024 03:06 PM Reporting Lab: [place] [facility] [address] [place] [address] Performing Lab: [place] [facility] [address] [place] [address] [facility] CBC PLATELETS [#/VOLUME] IN BLOOD BY AUTOMATED COUNT 151 10*3/u L 150 - 400 10/02 Specimen Type: BLOOD No comment entered. Ordering Provider: SILVERIO HUNTER Report Released Date/Time: Oct 02, 2024 03:06 PM Reporting Lab: [place] [facility] [address] [place] [address] Performing Lab: [place] [facility] [address] [place] [address] [facility] CBC PLATELET MEAN VOLUME [ENTITIC VOLUME] IN BLOOD BY AUTOMATED COUNT 11.1 fL 7.5 - 11.2 10/02 Specimen Type: BLOOD No comment entered. Ordering Provider: SILVERIO HUNTER Report Released Date/Time: Oct 02, 2024 03:06 PM Reporting Lab: [place] [facility] [address] [place] [address] Performing Lab: [place] [facility] [address] [place] [address] [facility] CBC ERYTHROCYTE DISTRIBUTIO N WIDTH [RATIO] BY AUTOMATED COUNT 14.9 11.8 - 15.1 10/02 Specimen Type: BLOOD No comment entered. Ordering Provider: SILVERIO HUNTER Report Released Date/Time: Oct 02, 2024 03:06 PM Reporting Lab: [place] [facility] [address] [place] [address] Performing Lab: [place] [facility] [address] [place] [address] [facility] CBC LYMPHOCYTES /100 LEUKOCYTES IN BLOOD BY AUTOMATED COUNT 35.1 10/02 Specimen Type: BLOOD No comment entered. Ordering Provider: SILVERIO HUNTER Report Released Date/Time: Oct 02, 2024 03:06 PM Reporting Lab: [place] [facility] [address] [place] [address] Performing Lab: [place] [facility] [address] [place] [address] [facility] CBC MONOCYTES/1 00 LEUKOCYTES IN BLOOD BY AUTOMATED COUNT 10.0 10/02 Specimen Type: BLOOD No comment entered. Ordering Provider: SILVERIO HUNTER Report Released Date/Time: Oct 02, 2024 03:06 PM Reporting Lab: [place] [facility] [address] [place] [address] Performing Lab: [place] [facility] [address] [place] [address] [facility] CBC NEUTROPHILS /100 LEUKOCYTES IN BLOOD BY AUTOMATED COUNT 51.7 10/02 Specimen Type: BLOOD No comment entered. Ordering Provider: SILVERIO HUNTER Report Released Date/Time: Oct 02, 2024 03:06 PM Reporting Lab: [place] [facility] [address] [place] [address] Performing Lab: [place] [facility] [address] [place] [address] [facility] CBC EOSINOPHILS /100 LEUKOCYTES IN BLOOD BY AUTOMATED COUNT 1.8 10/02 Specimen Type: BLOOD No comment entered. Ordering Provider: SILVERIO HUNTER Report Released Date/Time: Oct 02, 2024 03:06 PM Reporting Lab: [place] [facility] [address] [place] [address] Performing Lab: [place] [facility] [address] [place] [address] [facility] CBC BASOPHILS/1 00 LEUKOCYTES IN BLOOD BY AUTOMATED COUNT 0.8 10/02 Specimen Type: BLOOD No comment entered. Ordering Provider: SILVERIO HUNTER Report Released Date/Time: Oct 02, 2024 03:06 PM Reporting Lab: [place] [facility] [address] [place] [address] Performing Lab: [place] [facility] [address] [place] [address] [facility] CBC LYMPHOCYTES [#/VOLUME] IN BLOOD BY AUTOMATED COUNT 1.79 10*3/u L 0.77 - 4.50 10/02 Specimen Type: BLOOD No comment entered. Ordering Provider: SILVERIO HUNTER Report Released Date/Time: Oct 02, 2024 03:06 PM Reporting Lab: [place] [facility] [address] [place] [address] Performing Lab: [place] [facility] [address] [place] [address] [facility] CBC MONOCYTES [#/VOLUME] IN BLOOD BY AUTOMATED COUNT 0.51 10*3/u L 0.19 - 0.8 10/02 Specimen Type: BLOOD No comment entered. Ordering Provider: SILVERIO HUNTER Report Released Date/Time: Oct 02, 2024 03:06 PM Reporting Lab: [place] [facility] [address] [place] [address] Performing Lab: [place] [facility] [address] [place] [address] [facility] CBC NEUTROPHILS [#/VOLUME] IN BLOOD BY AUTOMATED COUNT 2.64 10*3/u L 2.10 - 8.00 10/02 Specimen Type: BLOOD No comment entered. Ordering Provider: SILVERIO HUNTER Report Released Date/Time: Oct 02, 2024 03:06 PM Reporting Lab: [place] [facility] [address] [place] [address] Performing Lab: [place] [facility] [address] [place] [address] [place] [facility] CBC EOSINOPHILS [#/VOLUME] IN BLOOD BY AUTOMATED COUNT 0.09 10*3/u L 0.00 - 0.60 10/02 Specimen Type: BLOOD No comment entered. Ordering Provider: SILVERIO HUNTER Report Released Date/Time: Oct 02, 2024 03:06 PM Reporting Lab: [place] [facility] [address] [place] [address] [place] [address] Performing Lab: [place] [facility] [address] [place] [address] [facility] CBC BASOPHILS [#/VOLUME] IN BLOOD BY AUTOMATED COUNT 0.04 10*3/u L 0.00 - 0.20 10/02 Specimen Type: BLOOD No comment entered. Ordering Provider: SILVERIO HUNTER Report Released Date/Time: Oct 02, 2024 03:06 PM Reporting Lab: [place] [facility] [address] [place] [address] Performing Lab: [place] [facility] [address] [place] [address] [facility] CBC IMMATURE GRANULOCYTE S/100 LEUKOCYTES IN BLOOD BY AUTOMATED COUNT 0.6 10/02 Specimen Type: BLOOD No comment entered. Ordering Provider: SILVERIO HUNTER Report Released Date/Time: Oct 02, 2024 03:06 PM Reporting Lab: [place] [facility] [address] [place] [address] Performing Lab: [place] [facility] [address] [place] [address] [facility] CBC IMMATURE GRANULOCYTE S [#/VOLUME] IN BLOOD BY AUTOMATED COUNT 0.03 10*3/u L 0.00 - 0.05 10/02 Specimen Type: BLOOD No comment entered. Ordering Provider: SILVERIO HUNTER Report Released Date/Time: Oct 02, 2024 03:06 PM Reporting Lab: [place] [facility] [address] [place] [address] Performing Lab: [place] [facility] [address] [place] [address] [facility] B12 COBALAMIN (VITAMIN B12) [MASS/VOLUM E] IN SERUM OR PLASMA 790 pg/mL 213 - 816 10/02 Specimen Type: SERUM No comment entered. Ordering Provider: SILVERIO HUNTER Report Released Date/Time: Oct 02, 2024 03:06 PM Reporting Lab: [place] [facility] [address] [place] [address] Performing Lab: [place] [facility] [address] [place] [address] [facility] FOLATE (PB) FOLATE [MASS/VOLUM E] IN SERUM OR PLASMA 8.3 ng/mL 7 - 20 10/02 Specimen Type: SERUM No comment entered. Ordering Provider: SILVERIO HUNTER Report Released Date/Time: Oct 02, 2024 03:06 PM Reporting Lab: [place] [facility] [address] [place] [address] Performing Lab: [place] [facility] [address] [place] [address] [facility] HGA1C HEMOGLOBIN A1C/HEMOGLO BIN.TOTAL IN BLOOD 11.5 4.0 - 6.0 10/02 H Specimen Type: BLOOD No comment entered. Ordering Provider: SILVERIO HUNTER Report Released Date/Time: Oct 02, 2024 03:06 PM Reporting Lab: [place] [facility] [address] [place] [address] Performing Lab: [place] [facility] [address] [place] [facility] [facility] URINE ALBUMIN PROFILE-ih (PB) ALBUMIN [MASS/VOLUM E] IN URINE 24.47 mg/L 10/02 Specimen Type: URINE No comment entered. Ordering Provider: SILVERIO HUNTER Report Released Date/Time: Oct 02, 2024 03:06 PM Reporting Lab: [place] [facility] [address] [place] [address] Performing Lab: [place] [facility] [address] [place] [address] [facility] URINE ALBUMIN PROFILE-ih (PB) ALBUMIN/CRE ATININE [MASS RATIO] IN URINE 28.93 mg/g 0 - 30 10/02 Specimen Type: URINE No comment entered. Ordering Provider: SILVERIO HUNTER Report Released Date/Time: Oct 02, 2024 03:06 PM Reporting Lab: [place] [facility] [address] [place] [address] Performing Lab: [place] [facility] [address] [place] [address] [facility] URINE ALBUMIN PROFILE-ih (PB) CREATININE [MASS/VOLUM E] IN URINE 84.58 mg/dL 10/02 Specimen Type: URINE No comment entered. Ordering Provider: SILVERIO HUNTER Report Released Date/Time: Oct 02, 2024 03:06 PM Reporting Lab: [place] [facility] [address] [place] [address] Performing Lab: [place] [facility] [address] [place] [address] [facility] CHOLESTERO L PANEL (PB) CHOLESTEROL [MASS/VOLUM E] IN SERUM OR PLASMA 186 mg/dL 0 - 200 10/02 Specimen Type: PLASMA Comment: LDL calculation invalid when Triglyceride exceeds 250 mg/dl Ordering Provider: SILVERIO HUNTER Report Released Date/Time: Oct 02, 2024 03:06 PM Reporting Lab: [place] [facility] [address] [place] [address] Performing Lab: [place] [facility] [address] [place] [address] [facility] CHOLESTERO L PANEL (PB) TRIGLYCERID E [MASS/VOLUM E] IN SERUM OR PLASMA 503 mg/dL 0 - 150 10/02 H Specimen Type: PLASMA Comment: LDL calculation invalid when Triglyceride exceeds 250 mg/dl Ordering Provider: SILVERIO HUNTER Report Released Date/Time: Oct 02, 2024 03:06 PM Reporting Lab: [place] [facility] [address] [place] [address] Performing Lab: [place] [facility] [address] [place] [address] [facility] CHOLESTERO L PANEL (PB) CHOLESTEROL IN LDL [MASS/VOLUM E] IN SERUM OR PLASMA BY CALCULATION commen tmg/dL 10/02 Specimen Type: PLASMA Comment: LDL calculation invalid when Triglyceride exceeds 250 mg/dl Ordering Provider: SILVERIO HUNTER Report Released Date/Time: Oct 02, 2024 03:06 PM Reporting Lab: [place] [facility] [address] [place] [address] Performing Lab: [place] [facility] [address] [place] [address] [facility] CHOLESTERO L PANEL (PB) CHOLESTEROL IN HDL [MASS/VOLUM E] IN SERUM OR PLASMA 33.1 mg/dL 40 10/02 L Specimen Type: PLASMA Comment: LDL calculation invalid when Triglyceride exceeds 250 mg/dl Ordering Provider: SILVERIO HUNTER Report Released Date/Time: Oct 02, 2024 03:06 PM Reporting Lab: [place] [facility] [address] [place] [address] Performing Lab: [place] [facility] [address] [place] [address] [facility] CHOLESTERO L PANEL (PB) CHOLESTEROL IN HDL/CHOLEST JAD.TOTAL [MASS RATIO] IN SERUM OR PLASMA 17.8 25 10/02 Specimen Type: PLASMA Comment: LDL calculation invalid when Triglyceride exceeds 250 mg/dl Ordering Provider: SILVERIO HUNTER Report Released Date/Time: Oct 02, 2024 03:06 PM Reporting Lab: [place] [facility] [address] [place] [id number] Performing Lab: [place] [facility] [address] [place] [address] [facility] CHOLESTERO L PANEL (PB) CHOLESTEROL IN LDL [MASS/VOLUM E] IN SERUM OR PLASMA BY DIRECT ASSAY 95.8 mg/dL 0 - 99.9 10/02 Specimen Type: PLASMA Comment: LDL calculation invalid when Triglyceride exceeds 250 mg/dl Ordering Provider: SILVERIO HUNTER Report Released Date/Time: Oct 02, 2024 03:06 PM Reporting Lab: [place] [facility] [address] [place] [id number] Performing Lab: [place] [facility] [address] [place] [address] [facility] VITAMIN D, 25-HYDROXY 25-HYDROXYV ITAMIN D3 [MASS/VOLUM E] IN SERUM OR PLASMA 31.6 ng/mL 30 - 96 10/02 Specimen Type: SERUM No comment entered. Ordering Provider: SILVERIO HUNTER Report Released Date/Time: Oct 02, 2024 03:06 PM Reporting Lab: [place] [facility] [address] [place] [id number] Performing Lab: [place] [facility] [address] [place] [address] [place] [address] [facility] COMPREHENS JONATAN METABOLIC PANEL CREATININE [MASS/VOLUM E] IN SERUM OR PLASMA 0.75 mg/dL 0.7 - 1.3 10/02 Specimen Type: PLASMA Comment: LDL calculation invalid when Triglyceride exceeds 250 mg/dl Ordering Provider: SILVERIO HUNTER Report Released Date/Time: Oct 02, 2024 03:06 PM Reporting Lab: [place] [facility] [address] [place] [address] Performing Lab: [place] [facility] [address] [place] [address] [facility] COMPREHENS JONATAN METABOLIC PANEL UREA NITROGEN [MASS/VOLUM E] IN SERUM OR PLASMA 19 mg/dL 9 - 25 10/02 Specimen Type: PLASMA Comment: LDL calculation invalid when Triglyceride exceeds 250 mg/dl Ordering Provider: SILVERIO HUNTER Report Released Date/Time: Oct 02, 2024 03:06 PM Reporting Lab: [place] [facility] [address] [place] [facility] Performing Lab: [place] [facility] [address] [place] [address] [facility] COMPREHENS JONATAN METABOLIC PANEL GLUCOSE [MASS/VOLUM E] IN SERUM OR PLASMA 156 mg/dL 72 - 99 10/02 H Specimen Type: PLASMA Comment: LDL calculation invalid when Triglyceride exceeds 250 mg/dl Ordering Provider: SILVERIO HUNTER Report Released Date/Time: Oct 02, 2024 03:06 PM Reporting Lab: [place] [facility] [address] [place] [address] Performing Lab: [place] [facility] [address] [place] [address] [facility] COMPREHENS JONATAN METABOLIC PANEL SODIUM [MOLES/VOLU ME] IN SERUM OR PLASMA 140 meq/L 136 - 145 10/02 Specimen Type: PLASMA Comment: LDL calculation invalid when Triglyceride exceeds 250 mg/dl Ordering Provider: SILVERIO HUNTER Report Released Date/Time: Oct 02, 2024 03:06 PM Reporting Lab: [place] [facility] [address] [place] [address] Performing Lab: [place] [facility] [address] [place] [address] [facility] COMPREHENS JONATAN METABOLIC PANEL POTASSIUM [MOLES/VOLU ME] IN SERUM OR PLASMA 4.3 meq/L 3.5 - 5 10/02 Specimen Type: PLASMA Comment: LDL calculation invalid when Triglyceride exceeds 250 mg/dl Ordering Provider: SILVERIO HUNTER Report Released Date/Time: Oct 02, 2024 03:06 PM Reporting Lab: [place] [facility] [address] [place] [address] Performing Lab: [place] [facility] [address] [place] [address] [facility] COMPREHENS JONATAN METABOLIC PANEL CHLORIDE [MOLES/VOLU ME] IN SERUM OR PLASMA 106 meq/L 98 - 107 10/02 Specimen Type: PLASMA Comment: LDL calculation invalid when Triglyceride exceeds 250 mg/dl Ordering Provider: SILVERIO HUNTER Report Released Date/Time: Oct 02, 2024 03:06 PM Reporting Lab: [place] [facility] [address] [place] [address] Performing Lab: [place] [facility] [address] [place] [address] [facility] COMPREHENS JONATAN METABOLIC PANEL CARBON DIOXIDE, TOTAL [MOLES/VOLU ME] IN SERUM OR PLASMA 24 meq/L 22 - 31 10/02 Specimen Type: PLASMA Comment: LDL calculation invalid when Triglyceride exceeds 250 mg/dl Ordering Provider: SILVERIO HUNTER Report Released Date/Time: Oct 02, 2024 03:06 PM Reporting Lab: [place] [facility] [address] [place] [address] Performing Lab: [place] [facility] [address] [place] [address] [facility] COMPREHENS JONATAN METABOLIC PANEL CALCIUM [MASS/VOLUM E] IN SERUM OR PLASMA 8.7 mg/dL 8.4 - 10.4 10/02 Specimen Type: PLASMA Comment: LDL calculation invalid when Triglyceride exceeds 250 mg/dl Ordering Provider: SILVERIO HUNTER Report Released Date/Time: Oct 02, 2024 03:06 PM Reporting Lab: [place] [facility] [address] [place] [address] Performing Lab: [place] [facility] [address] [place] [address] [facility] COMPREHENS JONATAN METABOLIC PANEL PROTEIN [MASS/VOLUM E] IN SERUM OR PLASMA 7.1 g/dL 6 - 8.6 10/02 Specimen Type: PLASMA Comment: LDL calculation invalid when Triglyceride exceeds 250 mg/dl Ordering Provider: SILVERIO HUNTER Report Released Date/Time: Oct 02, 2024 03:06 PM Reporting Lab: [place] [facility] [address] [place] [address] Performing Lab: [place] [facility] [address] [place] [address] [facility] COMPREHENS JONATAN METABOLIC PANEL ALBUMIN [MASS/VOLUM E] IN SERUM OR PLASMA 4.5 g/dL 3.4 - 5 10/02 Specimen Type: PLASMA Comment: LDL calculation invalid when Triglyceride exceeds 250 mg/dl Ordering Provider: SILVERIO HUNTER Report Released Date/Time: Oct 02, 2024 03:06 PM Reporting Lab: [place] [facility] [address] [place] [address] Performing Lab: [place] [facility] [address] [place] [address] [facility] COMPREHENS JONATAN METABOLIC PANEL BILIRUBIN.T OTAL [MASS/VOLUM E] IN SERUM OR PLASMA 0.8 mg/dL 0.2 - 1.2 10/02 Specimen Type: PLASMA Comment: LDL calculation invalid when Triglyceride exceeds 250 mg/dl Ordering Provider: SILVERIO HUNTER Report Released Date/Time: Oct 02, 2024 03:06 PM Reporting Lab: [place] [facility] [address] [place] [address] Performing Lab: [place] [facility] [address] [place] [address] [facility] COMPREHENS JONATAN METABOLIC PANEL ALKALINE PHOSPHATASE [ENZYMATIC ACTIVITY/VO LUME] IN SERUM OR PLASMA 49 U/L 40 - 150 10/02 Specimen Type: PLASMA Comment: LDL calculation invalid when Triglyceride exceeds 250 mg/dl Ordering Provider: SILVERIO HUNTER Report Released Date/Time: Oct 02, 2024 03:06 PM Reporting Lab: [place] [facility] [address] [place] [address] Performing Lab: [place] [facility] [address] [place] [address] [facility] COMPREHENS JONATAN METABOLIC PANEL ASPARTATE AMINOTRANSF ERASE [ENZYMATIC ACTIVITY/VO LUME] IN SERUM OR PLASMA 17 U/L 5 - 34 10/02 Specimen Type: PLASMA Comment: LDL calculation invalid when Triglyceride exceeds 250 mg/dl Ordering Provider: SILVERIO HUNTER Report Released Date/Time: Oct 02, 2024 03:06 PM Reporting Lab: [place] [facility] [address] [place] [address] Performing Lab: [place] [facility] [address] [place] [address] [facility] COMPREHENS JONATAN METABOLIC PANEL ALANINE AMINOTRANSF ERASE [ENZYMATIC ACTIVITY/VO LUME] IN SERUM OR PLASMA 22 U/L 8 - 40 10/02 Specimen Type: PLASMA Comment: LDL calculation invalid when Triglyceride exceeds 250 mg/dl Ordering Provider: SILVERIO HUNTER Report Released Date/Time: Oct 02, 2024 03:06 PM Reporting Lab: [place] [facility] [address] [place] [address] Performing Lab: [place] [facility] [address] [place] [address] [facility] COMPREHENS JONATAN METABOLIC PANEL GLOMERULAR FILTRATION RATE/1.73 SQ M.PREDICTED [VOLUME RATE/AREA] IN SERUM, PLASMA OR BLOOD BY CREATININE- BASED FORMULA (CKD-EPI 2020) 98 10/02 Specimen Type: PLASMA Comment: LDL calculation invalid when Triglyceride exceeds 250 mg/dl Ordering Provider: SILVERIO HUNTER Report Released Date/Time: Oct 02, 2024 03:06 PM Reporting Lab: [place] [facility] [address] [place] [address] Performing Lab: [place] [facility] [address] [place] [address] [facility] Vital Signs Combined list of inpatient and outpatient Vital Signs from Department of Defense and Veterans Affairs, ranging from 12 months to all on record, depending upon the facility. Vital Sign Value Date Comments Source SYSTOLIC BLOOD PRESSURE 161 10/02/2024 14:18:00 [facility] DIASTOLIC BLOOD PRESSURE 87 10/02/2024 14:18:00 [facility] PULSE OXIMETRY 95 % 10/02/2024 14:18:00 [facility] WEIGHT 204.5 10/02/2024 14:18:00 [facility] BMI 29 kg/m2 10/02/2024 14:18:00 [facility] PAIN 10 10/02/2024 14:18:00 [facility] TEMPERATURE 98.5 10/02/2024 14:18:00 [facility] PULSE 98 10/02/2024 14:18:00 [facility] RESPIRATION 18 10/02/2024 14:18:00 [facility] PULSE OXIMETRY 95 05/21/2024 15:32:00 [facility] PULSE 98 05/21/2024 15:32:00 [facility] SYSTOLIC BLOOD PRESSURE 141 02/07/2024 15:09:15 [place] [facility] DIASTOLIC BLOOD PRESSURE 76 02/07/2024 15:09:15 [place] [facility] PULSE OXIMETRY 96 02/07/2024 15:09:15 [place] [facility] PAIN 0 02/07/2024 15:09:15 [place] [facility] TEMPERATURE 97 02/07/2024 15:09:15 [place] [facility] PULSE 110 02/07/2024 15:09:15 [place] [facility] RESPIRATION 18 02/07/2024 15:09:15 [place] [facility] Encounters Combined list of: 1) Encounters from Department of [facility] Affairs facilities going backup to the last 18 months, not all [place] inpatient encounters are included; 2) Encounters from the Department of [facility] facilities going backup to 280 months. Location Location Details Encounter Type Encounter Number Reason For Visit Attending Provider ADM Date DC Date Status Disposition Source [facility] OFFICE O/P EST MOD 30 MIN [id number] Diagnos is: ICD-10- CM E11.9 Type 2 diabete s mellitu s without complic ations Jose De Jesus FLORES 05/06 [facility] Outpatient Encounter [id number] Jose De Jesus FLORES 05/10 [facility] Outpatient Encounter [id number] 05/11 [facility] Outpatient Encounter [id number] 05/23 [facility] Outpatient Encounter [id number] 06/09 [facility] Outpatient Encounter [id number] 06/13 [facility] Outpatient Encounter [id number] Jose De Jesus FLORES 06/14 [facility] Outpatient Encounter [id number] Diagnos is: ICD-10- CM E78.5 Hyperli pidemia , unspeci fied Ana Laura BARRERA W 06/26 [facility] OFFICE O/P EST SF 10 MIN [id number] Diagnos is: ICD-10- CM L03.90 Celluli tis, unspeci fied Jose De Jesus FLORES D 06/27 [facility] Outpatient Encounter [id number] 07/26 [facility] Outpatient Encounter [id number] 08/16 [facility] MTMS BY PHARM ADDL 15 MIN [id number] Diagnos is: ICD-10- CM E78.5 Hyperli pidemia , unspeci fied Ana Laura BARRERA NINI W 09/18 [facility] MTMS BY PHARM ADDL 15 MIN [id number] Diagnos is: ICD-10- CM E78.5 Hyperli pidemia , unspeci fiAna Laura Ureña NINI W 10/17 [facility] Outpatient Encounter [id number] Diagnos is: ICD-10- CM E78.5 Hyperli pidemia , unspeci fied Ana Laura BARRERA NINI W 11/07 [facility] Outpatient Encounter [id number] 02/06 [facility] Outpatient Encounter [id number] 02/06 [facility] OFFICE O/P EST LOW 20 MIN [id number] Diagnos is: ICD-10- CM N39.0 Urinary tract infecti on, site not specifi ed RACHANANELSON PIERCE TONG S 02/06 [facility] Outpatient Encounter [id number] 02/06 [facility] Outpatient Encounter [id number] 02/06 [facility] Outpatient Encounter [id number] 03/06 [facility] Outpatient Encounter [id number] 03/07 [facility] Outpatient Encounter [id number] 03/07 [facility] Outpatient Encounter [id number] 05/10 [facility] Outpatient Encounter [id number] 05/16 [facility] OFFICE O/P EST MOD 30 MIN [id number] Diagnos is: ICD-10- CM Z00.01 Encount er for general adult medical exam w rodrigo meyers s DIMAS HUNTER G 05/21 [facility] Outpatient Encounter [id number] 05/23 [facility] Outpatient Encounter [id number] 08/10 [facility] [place] [facility] Outpatient Encounter [id number] 10/02 [place] [facility] OFF/OP EST MAY X REQ PHY/QHP [id number] Diagnos is: ICD-10- CM M54.50 Low back pain, unspeci fied [place]AM[place],AN SANTIAGO D 10/02 [facility] OFFICE O/P EST MOD 30 MIN [id number] Diagnos is: ICD-10- CM M54.50 Low back pain, unspeci fied DIPAK HUNTERDotty SAROJLeah G 10/02 [facility] Outpatient Encounter [id number] 10/04 [facility] Social History Combined list of available smoking, tobacco, and other social history from Department of Defense and Veterans Affairs facilities. Social History Type Response Date Comment Sourc e Tobacco smoking status [facility] VA-TOBACCO USE EVERY DAY CIGARETTES 05/21/2024 [facility] History of tobacco use NE-TOBACCO NEVER USED OTHER TYPE 05/21/2024 [facility] History of tobacco use VA-TOBACCO USE 30 YEARS OR MORE 05/06/2023 [facility] History of tobacco use VA-TOBACCO USE WI 30 MIN OF WAKEUP 01/13/2022 [facility] History of tobacco use TOBACCO USER OFFE RED MEDS 07/25/2017 [facility] History of tobacco use TOBACCO USER OFFE RED MEDS 09/07/2016 [facility] History of tobacco use TOBACCO OFFERED P T MEDS (PROVIDER) 09/08/2015 [facility] History of tobacco use QUIT TOBACCO IN T HE LAST 12 MONTHS 05/08/2010 [facility] Plan of Care List of future care activities from Department of Veterans Affairs facilities. Additional future care activities may be listed in the Assessment and Plan section. Date/Time Care Activity Care Activity Detail Facili ty 10/11/2024 AMBULATORY - MEDICINE [facility] [place] [facility] [place] [facility]
[2024-10-06 10:26] VITALS: BP 119/73; PULSE 109; RESP 16; TEMP 36.6; O2SAT 98; BMI 29.2
--- NOTE | 2024-10-06 10:45 | W.ED.MALEGU ---
HPI - Male Genitourinary General: Chief complaint: Urogenital-Male Stated complaint: trouble urinating strong odor Time Seen by Provider: 10/06/24 10:27 History of Present Illness: 69-year-old male presents to the emergency room complaining of right flank pain dysuria urgency and frequency foul-smelling urine for the last 3 weeks progressively worsening he said difficulty starting and stopping urine. He has felt like he is able to get his bladder empty for the most part. He denies any fever sweats or chills no hematuria. His presentation at the time I seen him is not consistent with a ureterolithiasis Associated symptoms: Reports dysuria Related Data Home Medications ?Medication ?Instructions ?Recorded ?Confirmed glipizide 5 mg tablet 5 mg PO DAILY 03/11/21 12/20/23 metformin 500 mg tablet 500 mg PO DAILY 03/11/21 12/20/23 naproxen sodium 220 mg capsule 220 mg PO BID PRN 03/11/21 12/20/23 (Aleve) omega-3 fatty acids 1,000 mg 1,000 mg PO DAILY 03/11/21 12/20/23 capsule (Fish Oil Concentrate) tamsulosin 0.4 mg capsule 0.4 mg PO DAILY 03/11/21 12/20/23 alogliptin 25 mg tablet 25 mg PO DAILY 08/17/23 12/20/23 aspirin 81 mg tablet,delayed 81 mg PO DAILY 08/17/23 12/20/23 release (Adult Aspirin Regimen) atorvastatin 80 mg tablet 80 mg PO DAILY 08/17/23 12/20/23 cholecalciferol (vitamin D3) 50 50 mcg PO DAILY 08/17/23 12/20/23 mcg (2,000 unit) capsule empagliflozin 25 mg tablet 25 mg PO DAILY 08/17/23 12/20/23 pioglitazone 30 mg tablet 30 mg PO DAILY 08/17/23 12/20/23 Previous Rx's ?Medication ?Instructions ?Recorded carboxymethylcellulose sodium 1 % 1 drp ophthalmic (eye) 5XD #15 mL 01/30/20 eye drops (Artificial Tears (carboxymethylcellulose)) white petrolatum-mineral oil 83 1 applic ophthalmic (eye) ONCE 01/30/20 %-15 % eye ointment (Artificial #3.5 grams Tears (petrolatum/mineral oil)) Diabetic Shoes with 3 insoles #1 ea 12/27/22 propranolol 20 mg tablet 20 mg PO BID #180 tabs 12/20/23 tamsulosin 0.4 mg capsule 0.4 mg PO BID #60 caps 10/06/24 Allergies Allergy/AdvReac Type Severity Reaction Status Date / Time No Known Allergies Allergy Verified 10/06/24 10:31 Review of Systems Const: Denies: fever(s) or chills Card: Denies: chest pain Resp: Denies: dyspnea GI: Denies: abdominal pain : Reports: flank pain, difficulty urinating, dysuria, urinary frequency, urinary urgency and urinary hesitancy Musc: Denies: neck pain or back pain Skin/Breast: Denies: rash PFSH ED PFSH: Social History Smoking and tobacco/nicotine status: current every day tobacco/nicotine user (3/4 pack a day) Physical Exam Const: COMMON NORMALS: no acute distress GENERAL APPEARANCE: cooperative and comfortable ORIENTATION/CONSCIOUSNESS: Yes awake, Yes oriented to person, Yes oriented to place and Yes oriented to time HENMT: COMMON NORMALS: normocephalic, atraumatic and hearing grossly normal bilaterally HEAD & SCALP: normocephalic and atraumatic Resp: COMMON NORMALS: normal respiratory effort, No retractions, No use of accessory muscles and clear to auscultation bilaterally AUSCULTATION: clear to auscultation bilaterally Cardio: COMMON NORMALS: regular rate, regular rhythm and No murmurs present (Cardio) RATE: regular rate RHYTHM: regular rhythm GI: COMMON NORMALS: Soft to palpation and No hepatosplenomegaly present AUSCULTATION: Yes normoactive bowel sounds PALPATION: Yes Soft to palpation, No Tenderness to palpation present (GI), No Guarding due to palpation present (GI) and Yes No hepatosplenomegaly present Extremity: COMMON NORMALS: normal to inspection, capillary refill normal, no clubbing, cyanosis or edema, no calf tenderness and no pedal edema Neuro: SENSORIUM/ORIENTATION: Yes oriented to person, Yes oriented to place and Yes oriented to time Skin: COMMON NORMALS: no rashes or lesions noted GENERAL SKIN EXAM: no rashes or lesions noted Course Vital Signs: Vital signs: Vital Signs Temperature 97.8 F 10/06/24 10:26 Pulse Rate 109 H 10/06/24 10:26 Respiratory Rate 16 10/06/24 10:26 Blood Pressure 119/73 10/06/24 10:26 Pulse Oximetry 98 10/06/24 10:26 Oxygen Delivery Me thod Room Air 10/06/24 10:26 MDM - Male Medical Decision Making No sign of cystitis patient is of does have retained urine with just about 400 mL after voiding. Discussed catheter he would prefer to go up on his tamsulosin 1. No sign of endorgan damage his creatinine is still within normal ranges. Will discharge him home with strict instructions to return if he finds himself unable to urinate at all. Follow-up with your primary care doctor next week. Patient understands there is a risk that he could be unable to urinate completely and have to return to the emergency room but wishes to do this to avoid a catheter at this time. Medical Records I reviewed the patient's medical records. Lab Data I reviewed the patient's lab results. 10/06/24 10:54 Laboratory Results Sodium 132 mmol/L (136-145) L 10/06/24 10:54 Potassium 3.7 mmol/L (3.5-5.1) 10/06/24 10:54 Chloride 96 mmol/L (98-107) L 10/06/24 10:54 Carbon Dioxide 22 mmol/L (22-29) 10/06/24 10:54 Anion Gap 17.7 (5-19) 10/06/24 10:54 BUN 15 mg/dL (8-23) 10/06/24 10:54 Creatinine 0.6 mg/dL (0.7-1.2) L 10/06/24 10:54 GFR Calculation 133.6 mL/min (90-130) H 10/06/24 10:54 Glucose 262 mg/dL (65-115) H 10/06/24 10:54 Calculated Osmolality 284 mOsm/kg (285-295) L 10/06/24 10:54 Calcium 8.5 mg/dL (8.5-10.5) 10/06/24 10:54 Urine Color Yellow (Yellow) 10/06/24 11:07 Urine Appearance Clear (CLEAR) 10/06/24 11:07 Urine pH 5.0 (5-7) 10/06/24 11:07 Ur Specific [place] 1.045 (1.005-1.030) H 10/06/24 11:07 Urine Protein Negative (Negative) 10/06/24 11:07 Urine Glucose (UA) 3+ (Normal) H 10/06/24 11:07 Urine Ketones 1+ (Negative) H 10/06/24 11:07 Urine Blood Negative (Negative) 10/06/24 11:07 Urine Nitrate Negative (Negative) 10/06/24 11:07 Urine Bilirubin Negative (Negative) 10/06/24 11:07 Urine Urobilinogen 0.2 mg/dL (Negative) 10/06/24 11:07 Ur Leukocyte Esterase Negative (Negative) 10/06/24 11:07 Urine RBC 0-2 /hpf (0-2) 10/06/24 11:07 Urine WBC 0-5 /hpf (0-5) 10/06/24 11:07 Ur Squamous Epith Cells 0-5 /hpf (0-5) 10/06/24 11:07 Amorphous Sediment Not Reportable 10/06/24 11:07 Urine Bacteria None seen /hpf (NONE) 10/06/24 11:07 Hyaline Casts 0.81 /lpf 10/06/24 11:07 No radiology studies performed this visit Discharge Plan Discharge Patient Disposition: Home Clinical Impression: Back pain, BPH (benign prostatic hyperplasia), Enlarged prostate with urinary retention Condition: Stable Prescriptions: Continued tamsulosin 0.4 mg capsule 0.4 mg PO DAILY Changed tamsulosin 0.4 mg capsule 0.4 mg PO BID Qty: 60 0RF No Action metformin 500 mg tablet 500 mg PO DAILY omega-3 fatty acids [Fish Oil Concentrate] 1,000 mg capsule 1,000 mg PO DAILY glipizide 5 mg tablet 5 mg PO DAILY naproxen sodium [Aleve] 220 mg capsule 220 mg PO BID PRN propranolol 20 mg tablet 20 mg PO BID Qty: 180 3RF (DME) Diabetic Shoes with 3 insoles See Rx Instructions .Route .MEDSUPPLY Qty: 1 0RF Rx Instructions: As directed Shomay Lopez atorvastatin 80 mg tablet 80 mg PO DAILY aspirin [Adult Aspirin Regimen] 81 mg tablet,delayed release (DR/EC) 81 mg PO DAILY cholecalciferol (vitamin D3) 50 mcg (2,000 unit) capsule 50 mcg PO DAILY pioglitazone 30 mg tablet 30 mg PO DAILY empagliflozin 25 mg tablet 25 mg PO DAILY alogliptin 25 mg tablet 25 mg PO DAILY Artificial Tears (cmc) 1 % drops 1 drp ophthalmic (eye) 5XD Qty: 15 0RF Artificial Tears (sully/min) 83-15 % ointment 1 applic ophthalmic (eye) ONCE Qty: 3.5 0RF Rx Instructions: at night Discharge Orders: Discharge ED (Routine); Ordered 10/06/24 Ordered By: German Perales Referrals: Chan Huerta, DO [Primary Care Provider, Emergency Medicine] Discharge Diet: Usual diet Patient Instructions: Opioid Safety, Pain Management, Patient Portal & Deana Instructions Activity Restrictions/Additional Instructions: [facility]. It is very important that you follow up as instructed or that you return to the Emergency Department should you have concerns or if your condition changes or worsens in any way. You are seen in the emergency room complaining difficulty with urination. You are retaining some urine. We discussed increasing her tamsulosin versus placing a catheter you opted for the increase in the medications increase tamsulosin 1 to 1 pill twice a day.. The urine did not show signs of infection follow-up with your primary care doctor within the next 7 to 10 days. Print Language: Cymro Coding Level of Care Code ED [employer] Supervisor for Kyler Anderson
[2024-10-06 11:13] LABS: Glucose Urine UA 3+ (Normal); Nitrate Urine Negative (Negative)
--- OUTSIDE RECORDS SUMMARY | 2024-10-06 11:13 | XMS_ITS | Clinical Summary ---
Author Organization [facility] Address [address] [place] [address] Phone Care Team Providers Care Residential Treatment Specialist Name Role Phone Unavailable Primary Care Provider Unavailabl e Allergies No known active allergies Medications aspirin 81 mg tablet,delayed release Take 81 mg by mouth daily. Active alogliptin 25 mg tablet Take 25 mg by mouth daily. Active fish oil-omega-3 fatty acids 340-1,000 mg Capsule Take 1 Capsule by mouth daily. Active metFORMIN 500 mg tablet Take 500 mg by mouth 2 times daily with meals. Active atorvastatin 40 mg tablet Take 40 mg by mouth daily. Active glipiZIDE 10 mg tablet Take 10 mg by mouth 2 times daily. Active terbinafine HCL 250 mg tablet Take 250 mg by mouth daily. Active tamsulosin 0.4 mg capsule Take 0.4 mg by mouth daily. Active peg 3350-electrolyt es (GOLYTELY) 236-22.74-6.74 -5.86 gram Recon Soln Take 1 Each (4,000 mL) by mouth one time for 1 dose. Use as directed the day prior to your procedure. 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 Gender Identity Not on file Sexual Orientation Not on file Last Filed Vital Signs Vital Sign Reading Time Taken Comments Blood Pressure 117/71 07/29/2022 9:49 AM CDT Pulse 84 07/29/2022 9:49 AM CDT Temperature 36.2 C (97.1 F) 07/29/2022 9:42 AM CDT Respiratory Rate 18 07/29/2022 9:49 AM CDT Oxygen Saturation 94% 07/29/2022 9:49 AM CDT Inhaled Oxygen Concentration - - Weight 97.1 kg (214 lb) 07/29/2022 7:35 AM CDT Height 175.3 cm (5' 9 ) 07/29/2022 7:35 AM CDT Body Mass Index 31.6 07/29/2022 7:35 AM CDT Plan of Treatment Health Maintenance Due Date Last Done Comments DTAP/TDAP/TD VACCINES (1 - Tdap) 1974 PNEUMOCOCCAL VACCINE 50+ YEARS (1 of 2 - PCV) 03/29/18 75 FIT-DNA Q 3 years 2000 FIT/FOBT Q 1 year 2000 Flex Sig/CT Colonography Q 5 years 2000 ZOSTER VACCINE (1 of 2) 2005 INFLUENZA VACCINE (#1) 2024 RSV VACCINE (60+ or ) (1 - 1-dose 75+ series) 2030 COLORECTAL SCREENING 07/29/2032 07/29/2022 Colorectal Cancer Screening 07/29/2032 Insurance * Guarantor: [facility] D (C) Account Type Relation to Patient Date of Phone Billing Address Corporate Other DEFAULT ADDRESS [address] [place] [address] Advance Directives For more information, please contact: [phone] * Full Code (Latest Code Status on File) Date Activated Date Inactivated Comments 07/29/2022 9:37 AM 07/29/2022 12:05 PM
[2024-10-06 11:16] LABS: Add Urine Microscopic? YES
[2024-10-06 11:25] LABS: Anion Gap 17.7 (5-19); Blood Urea Nitrogen 15 mg/dL (8-23); Calcium 8.5 mg/dL (8.5-10.5); Carbon Dioxide 22 mmol/L (22-29); Chloride 96 mmol/L (98-107); Creatinine Clr Calc Pharmacy 99.6135; Glucose 262 mg/dL (65-115); Osmolality Calculated 284 mOsm/kg (285-295); Potassium 3.7 mmol/L (3.5-5.1); Sodium 132 mmol/L (136-145)
[2024-10-06 11:41] LABS: Specific Gravity, Urine 1.045 (1.005-1.030)
[2024-10-06] MEDS: methylPREDNISolone sod succ 125 mg/2 mL INJ IVP (12:19)
== END 2024-10-06 12:49 | disposition home or self-care (01) ==
PROVIDERS: Emergency Provider Family Medicine; PCP Emergency Medicine Emergency Medical Services
DX: M54.9 Dorsalgia, unspecified (principal); N40.0 Benign prostatic hyperplasia without lower urinary tract symptoms; R33.9 Retention of urine, unspecified; Z79.82 Long term (current) use of aspirin; F17.210 Nicotine dependence, cigarettes, uncomplicated
CPT/HCPCS: 36415; 51798; 80048; 81001; 96374; 96375; 99284; J1885; J2919

== ENCOUNTER → 2024-10-31 09:12 | Outpatient (BNVA) | payer OTHER, SELFPAY | PROVIDERS: PCP Emergency Medicine Emergency Medical Services; Visit Provider Nurse Practitioner Family | DX: M54.41 Lumbago with sciatica, right side (principal); G89.29 Other chronic pain | CPT/HCPCS: 99214 ==

== ENCOUNTER → 2024-11-07 13:12 | Outpatient (BNVA) | payer OTHER, SELFPAY | PROVIDERS: PCP Emergency Medicine Emergency Medical Services; Visit Provider Nurse Practitioner Family | DX: M79.18 Myalgia, other site (principal); M54.9 Dorsalgia, unspecified; M54.41 Lumbago with sciatica, right side; G89.29 Other chronic pain; F17.210 Nicotine dependence, cigarettes, uncomplicated | CPT/HCPCS: 20553; 99214; J1010; J3490 ==

== ENCOUNTER → 2024-11-20 09:22 | Outpatient (BNVA) | payer OTHER, SELFPAY | PROVIDERS: PCP Family Medicine Geriatric Medicine; Visit Provider Nurse Practitioner Family | DX: M54.41 Lumbago with sciatica, right side (principal); G89.29 Other chronic pain; F17.210 Nicotine dependence, cigarettes, uncomplicated | CPT/HCPCS: 99214 ==

== ENCOUNTER 2024-11-30 09:59 | Emergency (ER) | payer OTHER, SELFPAY ==
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
--- OUTSIDE RECORDS SUMMARY | 2024-11-30 10:06 | XMS_ITS | Clinical Summary ---
Author Organization [facility] Address [address] [place] [address] Phone Care Team Providers Care Synchronizer Name Role Phone Unavailable Primary Care Provider [...] = 0.6 oz pur e alcohol) occasional Feeling Safe Answer Date Recorded Are you in a relationship wi th someone who hurts you emotionally and/or physically? 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
[2024-11-30 10:09] VITALS: BP 129/107; PULSE 103; RESP 16; TEMP 36.8; O2SAT 96; BMI 28.3
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
[2024-11-30] MEDS: orphenadrine 30 mg/mL Inj 2 mL 60 MG IM (10:17)
--- NOTE | 2024-11-30 10:22 | PC.PHAR ---
[facility] 11/30/24 10:22am
[2024-11-30 11:50] LABS: Glucose Urine UA 3+ (Normal); Nitrate Urine Negative (Negative); Specific Gravity, Urine 1.021 (1.005-1.030)
[2024-11-30 11:52] LABS: Add Urine Microscopic? YES
[2024-11-30 12:00] VITALS: BP 138/88; PULSE 89; O2SAT 94
[2024-11-30 12:37] LABS: Hematocrit 45.6 % (37-53); Hemoglobin 15.80 g/dL (11.27-16.99); Mean Corpuscular HGB Conc 34.6 g/dL (30-55); Mean Corpuscular Hemoglobin 29.5 pg (27-33); Mean Corpuscular Volume 85.1 fl (82-101); Nucleated Red Blood Cells % 0 %; Platelet Count 163 10^3/cmm (157-399); Red Blood Count 5.36 10^6/uL (3.85-5.65); White Blood Count 6.13 10^3/uL (3.29-11.43)
[2024-11-30 12:57] LABS: Alanine Aminotransferase 17 U/L (0-41); Albumin Level 4.2 g/dL (3.5-5.2); Alkaline Phosphatase 63 U/L (40-130); Anion Gap 13.8 (5-19); Aspartate Amino Transferase 15 U/L (0-40); Blood Urea Nitrogen 14 mg/dL (8-23); Calcium 9.0 mg/dL (8.5-10.5); Carbon Dioxide 26 mmol/L (22-29); Chloride 103 mmol/L (98-107); Creatinine Clr Calc Pharmacy 98.0480; Globulin 2.6 g/dL (1.3-4.6); Glucose 198 mg/dL (65-115); Magnesium 1.9 mg/dL (1.7-2.3); Osmolality Calculated 294 mOsm/kg (285-295); Potassium 3.8 mmol/L (3.5-5.1); Sodium 139 mmol/L (136-145); Total Protein 6.8 g/dL (6.6-8.7)
--- NOTE | 2024-11-30 13:14 | PC.PHAR ---
Phoned [place] for medication list verification. Pt also gets a few meds at [facility]. Pt states he has not taken any meds in about 5 days. Last fill date [facility], was 05/22/24 90day supplies.
--- NOTE | 2024-12-03 12:53 | PC.SOCIAL ---
[facility]
== END 2024-11-30 13:51 | disposition home or self-care (01) ==
PROVIDERS: Emergency Provider Family Medicine; PCP Family Medicine Geriatric Medicine
DX: M54.16 Radiculopathy, lumbar region (principal); N28.89 Other specified disorders of kidney and ureter; E27.9 Disorder of adrenal gland, unspecified; Z79.82 Long term (current) use of aspirin; Z79.84 Long term (current) use of oral hypoglycemic drugs; Z72.0 Tobacco use
CPT/HCPCS: 36415; 72131; 80053; 81001; 83735; 85025; 96372; 99284; J2360

== ENCOUNTER → 2025-01-01 09:21 | Outpatient (BNVA) | payer OTHER, SELFPAY | PROVIDERS: PCP Family Medicine Geriatric Medicine; Visit Provider Nurse Practitioner Family | DX: M54.41 Lumbago with sciatica, right side (principal); G89.29 Other chronic pain | CPT/HCPCS: 99214 ==

== ENCOUNTER 2025-01-09 12:23 | Outpatient (CLI) | payer OTHER, SELFPAY ==
--- NOTE | 2025-01-09 12:28 | CTR_ITS ---
PROCEDURE INFORMATION: Exam: CT Abdomen And Pelvis Without And With Contrast Exam date and time: 01/09/2025 1:03 PM Age: 69 years old Clinical indication: Abnormal findings; Abnormal radiologic finding of the abdomen; Radiologic exam and body structure: CT lumbar spine; Additional info: Renal mass TECHNIQUE: Imaging protocol: Computed tomography of the abdomen and pelvis without and with contrast. 3D rendering (Not supervised by radiologist): MIP and/or 3D reconstructed images were created by the technologist. Radiation optimization: All CT scans at this facility use at least one of these dose optimization techniques: automated exposure control; mA and/or kV adjustment per patient size (includes targeted exams where dose is matched to clinical indication); or iterative reconstruction. Contrast material: OMNI 350; Contrast volume: 100 ml; Contrast route: INTRAVENOUS (IV); COMPARISON: CT lumbar spine wo con* [id number] 11/30/2024 10:38 AM RADIATION DOSE METRICS: Total DLP (mGy-cm): 1937.93 FINDINGS: Lungs: The lung bases are clear. Heart: Heart size is within normal limits. There is no pericardial effusion or pericardial thickening. Liver: There is diffuse decreased attenuation of the hepatic parenchyma consistent with fatty infiltration. The liver is otherwise normal. There are no hepatic masses identified. Gallbladder and biliary ducts: The gallbladder is contracted. There is no ductal dilatation. Pancreas: The pancreas is normal. Spleen: The spleen is normal. Adrenal glands: Indeterminate 2.2 cm left adrenal nodule. Kidneys and ureters: Nonobstructing 7 mm left lower pole renal calculus. Punctate nonobstructing left lower pole renal calculus. No other renal calcifications. No hydronephrosis. 7.0 x 5.4 x 7.4 cm enhancing mass arising from the medial left kidney consistent with renal cell carcinoma until proven otherwise. 3.5 x 5.0 x 3.3 cm enhancing mass arising from the anterior upper pole of the right kidney consistent with renal cell carcinoma until proven otherwise. This mass abuts the right adrenal gland and direct invasion is difficult to exclude on CT. Additional 1.5 x 1.6 x 2.4 cm enhancing mass arising from the lateral right upper pole consistent with renal cell carcinoma until proven otherwise. Bilateral renal cysts are also present. Multiple renal low-density lesions which are too small to characterize are also present. The renal vein appears patent bilaterally. Stomach and bowel: Mild colonic diverticulosis without diverticulitis. There is no large or small bowel obstruction. There is no evidence of bowel wall thickening. Appendix: A normal appendix is identified. Intraperitoneal space: No inflammatory changes are identified. There is no free fluid or fluid collection seen. There is no pneumoperitoneum. Vasculature: Atherosclerotic calcifications of the aorta are present. No aneurysm is identified. Lymph nodes: No enlarged lymph nodes are identified. Urinary bladder: The bladder is grossly unremarkable. Markedly enlarged prostate projects into the base of the urinary bladder. Reproductive: Marked prostatomegaly. Bones/joints: No acute osseous abnormalities are seen. There are few small sclerotic lesions in the pelvis which are nonspecific. No expansile lytic lesions are identified. Soft tissues: Small bilateral inguinal hernias containing only fat are present. CT/CT abdomen pelvis wo/w [id number] IMPRESSION: 1. 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 Patent renal veins. Anterior right upper pole renal mass is contiguous with the right adrenal gland and direct invasion is difficult to exclude on CT. Recommend urological consultation. 2. Indeterminate 2.2 cm left adrenal nodule. Recommend further evaluation with a adrenal protocol CT or MR. 3. Other nonemergent findings above.
[2025-01-09] MEDS: iohexol 350 mg/mL 500 mL Btl (per mL) IV (13:21)
== END 2025-01-09 12:24 | disposition home or self-care (01) ==
LOC: RAD 12:24
PROVIDERS: PCP Family Medicine Geriatric Medicine; Visit Provider Family Medicine Geriatric Medicine
DX: N28.89 Other specified disorders of kidney and ureter (principal); E27.8 Other specified disorders of adrenal gland; R93.2 Abnormal findings on diagnostic imaging of liver and biliary tract; R93.3 Abnormal findings on diagnostic imaging of other parts of digestive tract; N20.0 Calculus of kidney; K57.90 Diverticulosis of intestine, part unspecified, without perforation or abscess without bleeding; I70.0 Atherosclerosis of aorta; N40.0 Benign prostatic hyperplasia without lower urinary tract symptoms; K40.20 Bilateral inguinal hernia, without obstruction or gangrene, not specified as recurrent
CPT/HCPCS: 74178

== ENCOUNTER 2025-03-11 08:57 | Outpatient (CLI) | payer OTHER, SELFPAY ==
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
== END 2025-03-11 08:58 | disposition home or self-care (01) ==
LOC: RAD 08:58
PROVIDERS: PCP Family Medicine Geriatric Medicine; Visit Provider Orthopaedic Surgery
DX: M47.26 Other spondylosis with radiculopathy, lumbar region (principal); M47.896 Other spondylosis, lumbar region; M51.17 Intervertebral disc disorders with radiculopathy, lumbosacral region; M48.07 Spinal stenosis, lumbosacral region; M51.16 Intervertebral disc disorders with radiculopathy, lumbar region
CPT/HCPCS: 72148